=== PATIENT | male | born 1950 | race Caucasian/White ===

== ENCOUNTER 2017-05-14 15:35 | Inpatient (IN) ==
--- NOTE | 2017-05-14 15:57 | Emergency Department Note ---
Disposition Clinical Impression: CVA (cerebral vascular accident) Disposition: Admitted As Inpatient Condition: Fair Referrals: Kristen Díaz CNP [Primary Care Provider] - Forms: ED Satisfaction Letter General Adult HPI - General Stated complaint: neuro symptoms x8 hours Time Seen by Provider: 05/14/17 15:46 Nursing Notes Reviewed: Yes Vital Signs Reviewed: Yes - Related Data Allergies Allergy/AdvReac Type Severity Reaction Status Date / Time No Known Allergies Allergy Verified 05/14/17 15:56 Course Vital Signs Temperature 98.2 F 05/14/17 15:48 Pulse Rate 90 05/14/17 15:48 Respiratory Rate 16 05/14/17 15:48 Blood Pressure 131/88 05/14/17 15:48 O2 Sat by Pulse Oximetry 63 05/14/17 15:48 Temperature 98.2 F 05/14/17 15:48 Pulse Rate 90 05/14/17 15:48 Respiratory Rate 16 05/14/17 15:48 Blood Pressure 131/88 05/14/17 15:48 O2 Sat by Pulse Oximetry 63 05/14/17 15:48 Oxygen Delivery Oxygen Delivery Room Air Medical Decision Making - MDM Narrative Medical decision making narrative: I examined this patient and my medical decision-making was reviewed with the Resident Physician. I agree with the documented findings, disposition and treatment plan as described except to the extent set forth below. Patient seen and evaluated on arrival with family. And Dr. Peters, I agree with his evaluation management plan, suprascapular the patient's stay. Patient states he went to bed last night at midnight and felt fine but he had several falls during the night and this morning he woke up with slurred speech facial droop and weakness on his left side. He has had a stroke in the past and thinks he might have had a stroke since then. He takes aspirin every day. I asked him why he had not come in sooner and he replied he hoped that the symptoms would go away. He is outside the window for stroke alert. We will order labs and a CT of his head. He will need admission. Chest X-Ray 05/14/17 15:48 IMPRESSION: No acute cardiopulmonary disease. D/ / Gary Caldwell MD / Gary Caldwell MD Interpreting Provider: Gary Caldwell MD Head CT 05/14/17 15:48 IMPRESSION: No acute intracranial abnormality. 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 Slight to mild cerebral atrophy. Moderate chronic ischemic white matter changes. RECOMMENDATIONS: MRI suggested if the patient's symptoms persist. D/ / Renny Brown MD / Renny Brown MD Interpreting Provider: Renny Brown MD 1700 hrs.: We will admit the patient to the hospital. We will have neurology consult. He takes aspirin currently. No other anticoagulants this time. Patient's critical care time here excluding any separately billable procedures: 35 minutes. Impressions acute CVA. - Lab Data Result diagrams: 05/14/17 16:05 05/14/17 16:05 Lab Results 05/14/17 05/14/17 Range/Units 16:05 16:05 WBC 9.0 (4.3-11.1) K/mcL RBC 5.04 (4.19-5.50) M/mcL Hgb 15.5 (12.9-16.9) g/dL Hct 44.3 (37.5-50.1) % MCV 87.9 (83.0-100.0) fL MCH 30.8 (28.0-33.3) pg MCHC 35.0 (31.6-35.5) g/dL RDW 13.3 (11.5-14.5) % Plt Count 158 (140-400) K/mcL MPV 10.6 (9.4-12.4) fL Immature Gran % 0.7 (0-4) % Seg Neutrophils % 76.8 % Lymphocytes % 14.7 % Monocytes % 7.0 % Eosinophils % 0.4 % Basophils % 0.4 % Neutrophils # 6.9 (1.6-8.9) K/mcL Lymphocytes # 1.3 (0.6-4.6) K/mcL Monocytes # 0.6 (0.0-1.3) K/mcL Eosinophils # 0.0 (0.0-0.6) K/mcL Basophils # 0.0 (0.0-0.2) K/mcL Sodium 137 (136-145) mEq/L Potassium 3.7 (3.5-4.5) mEq/L Chloride 97 L (98-109) mEq/L Carbon Dioxide 29 (19-29) mEq/L BUN 15 (8-26) mg/dL Creatinine 0.88 (0.72-1.25) mg/dL Est GFR ( Amer) > 60 (> 60) Est GFR (Non-Af Amer) > 60 (> 60) BUN/Creatinine Ratio 17 (6-26) Glucose 118 H (70-99) mg/dL Calculated Osmolality 286 (280-300) Calcium 10.1 (8.6-10.8) mg/dL
[2017-05-14 16:16] LABS: Basophils % 0.4 %; Eosinophils % 0.4 %; Hematocrit 44.3 % (37.5-50.1); Hemoglobin 15.5 g/dL (12.9-16.9); Immature Granulocytes % 0.7 % (0-4); Lymphocytes # 1.3 K/mcL (0.6-4.6); Lymphocytes % 14.7 %; Mean Corpuscular Hemoglobin 30.8 pg (28.0-33.3); Mean Corpuscular Volume 87.9 fL (83.0-100.0); Mean Platelet Volume 10.6 fL (9.4-12.4); Monocytes # 0.6 K/mcL (0.0-1.3); Neutrophils # 6.9 K/mcL (1.6-8.9); Platelet Count 158 K/mcL (140-400); Red Blood Count 5.04 M/mcL (4.19-5.50); Red Cell Distribution Width 13.3 % (11.5-14.5); Segmented Neutrophils % 76.8 %
[2017-05-14] MEDS ORDERED: Lacri-Lube 3.5 GM TUBE OP ONE (16:17)
[2017-05-14 16:30] LABS: BUN/Creatinine Ratio 17 (6-26); Blood Urea Nitrogen 15 mg/dL (8-26); Calcium 10.1 mg/dL (8.6-10.8); Carbon Dioxide 29 mEq/L (19-29); Chloride 97 mEq/L (98-109); Glucose 118 mg/dL (70-99); Osmolality,Calculated 286 (280-300); Potassium 3.7 mEq/L (3.5-4.5); Sodium 137 mEq/L (136-145); eGFR For African Americans > 60 (> 60); eGFR For Non-African Americans > 60 (> 60)
--- NOTE | 2017-05-14 16:41 | Emergency Department Note ---
Disposition Clinical Impression: CVA (cerebral vascular accident) Qualifiers: CVA mechanism: unspecified Qualified Code(s): I63.9 - Cerebral infarction, unspecified Disposition: Admitted As Inpatient Condition: Fair Referrals: Kristen Díaz CNP [Primary Care Provider] - Forms: ED Satisfaction Letter General Adult HPI - General Chief complaint: ED Neuro Symptoms/Deficit Stated complaint: neuro symptoms x8 hours Time Seen by Provider: 05/14/17 15:46 Source: patient, family Limitations: no limitations Nursing Notes Reviewed: Yes Vital Signs Reviewed: Yes - History of Present Illness HPI Narrative: 66-year-old male who reports that at approximately midnight he got up to use the restroom and Staggering and falling. He fell multiple times. And then he went back to sleep and when he woke up he noticed his face was drooping and slurring his speech. He does have a history of a stroke multiple years ago. He does take aspirin currently. His other medical problems include hypertension and hyperlipidemia. He does not have a history of significant cardiac disease. Last known well was at midnight last night. He denies any chest pain or shortness of breath. No lower extremity edema. Pain Scale: 0 Improves with: nothing Worsens with: nothing Associated symptoms: Reports: denies other symptoms Treatments Prior to Arrival: none - Related Data Allergies Allergy/AdvReac Type Severity Reaction Status Date / Time No Known Allergies Allergy Verified 05/14/17 15:56 All systems ED: reviewed and negative except as stated. Constitutional: Denies: fever Eyes: Denies: vision change ENT ED: Denies: throat pain Cardiovascular: Denies: chest pain Respiratory: Denies: cough, dyspnea Gastrointestinal: Denies: abdominal pain Musculoskeletal: Denies: back pain Integumentary: Denies: rash Past Medical History - Past Medical History Medical history: Reports: CVA, hypertension Psychiatric history: Reports: no psych history - Social History Smoking Status: Current every day smoker Alcohol use: Reports: none Drug use: Reports: none Physical Exam - General Limitations: no limitations General appearance: alert - Head Head exam: atraumatic - Eye Eye exam: Present: normal appearance, PERRL - ENT ENT exam: normal exam, normal oropharynx - Neck Neck exam: Present: normal inspection - Chest Chest inspection: Present: normal inspection - Respiratory Respiratory exam: Present: normal lung sounds bilaterally. Absent: respiratory distress - Cardiovascular Cardiovascular exam: Present: regular rate, normal rhythm - Abdominal Exam Abdominal exam: Present: soft, Non-Tender - Extremities Exam Extremities exam: Present: normal inspection - Neurological Exam Neurological exam: Present: alert, oriented X3, other (Right-sided facial droop. Significant slurring of speech. Full range of motion, sensation, strength in the upper and lower extremities.) - Psychiatric Psychiatric exam: Present: normal affect, normal mood - Skin Skin exam: Present: warm, dry Course Course Narrative: He presents with a symptoms concerning for a CVA. We will not order a stroke alert as he is significantly passed the TPA window. He has been falling to the left and felt his left side was weaker previously, but is not currently. Labwork unremarkable. NIH of 4. CT head negative. Will admit. Vital Signs Temperature 98.2 F 05/14/17 15:48 Pulse Rate 90 05/14/17 15:48 Respiratory Rate 16 05/14/17 15:48 Blood Pressure 131/88 05/14/17 15:48 O2 Sat by Pulse Oximetry 63 05/14/17 15:48 Temperature 98.2 F 05/14/17 15:48 Pulse Rate 90 05/14/17 15:48 Respiratory Rate 16 05/14/17 15:48 Blood Pressure 131/88 05/14/17 15:48 O2 Sat by Pulse Oximetry 63 05/14/17 15:48 Oxygen Delivery Oxygen Delivery Room Air Medical Decision Making - Medical Records Medical records reviewed: Yes I reviewed the patient's medical records. - Lab Data Lab results reviewed: Yes I reviewed the patient's lab results. Result diagrams: 05/14/17 16:05 05/14/17 16:05 Lab Results 05/14/17 05/14/17 Range/Units 16:05 16:05 WBC 9.0 (4.3-11.1) K/mcL RBC 5.04 (4.19-5.50) M/mcL Hgb 15.5 (12.9-16.9) g/dL Hct 44.3 (37.5-50.1) % MCV 87.9 (83.0-100.0) fL MCH 30.8 (28.0-33.3) pg MCHC 35.0 (31.6-35.5) g/dL RDW 13.3 (11.5-14.5) % Plt Count 158 (140-400) K/mcL MPV 10.6 (9.4-12.4) fL Immature Gran % 0.7 (0-4) % Seg Neutrophils % 76.8 % Lymphocytes % 14.7 % Monocytes % 7.0 % Eosinophils % 0.4 % Basophils % 0.4 % Neutrophils # 6.9 (1.6-8.9) K/mcL Lymphocytes # 1.3 (0.6-4.6) K/mcL Monocytes # 0.6 (0.0-1.3) K/mcL Eosinophils # 0.0 (0.0-0.6) K/mcL Basophils # 0.0 (0.0-0.2) K/mcL Sodium 137 (136-145) mEq/L Potassium 3.7 (3.5-4.5) mEq/L Chloride 97 L (98-109) mEq/L Carbon Dioxide 29 (19-29) mEq/L BUN 15 (8-26) mg/dL Creatinine 0.88 (0.72-1.25) mg/dL Est GFR ( Amer) > 60 (> 60) Est GFR (Non-Af Amer) > 60 (> 60) BUN/Creatinine Ratio 17 (6-26) Glucose 118 H (70-99) mg/dL Calculated Osmolality 286 (280-300) Calcium 10.1 (8.6-10.8) mg/dL - Radiology Data Radiology results reviewed: Yes I reviewed the patient's radiology results. - EKG Data EKG #1 EKG attestation: Yes I reviewed and interpreted this EKG. EKG shows normal: sinus rhythm Rate: normal Rhythm: NSR Heart block present: 1st Degree Interpretation: other (Possible mild ST depression in V4 and V5. No other reciprocal changes. No T-wave inversions. He is not having any chest pain. There is no old EKG to refer to.) NIH Stroke Scale - Level of Consciousness LOC: Alert - LOC Questions LOC Questions: Answers both correctly - LOC Commands LOC Commands: Performs both correctly - Best Gaze Best Gaze: Normal - Visual Visual: No visual loss - Facial Palsy Facial Palsy: Partial, total, or near-total paralysis of lower face - Motor Arms Motor Arm-Left: No drift for 10 seconds Motor Arm-Right: No drift for 10 seconds - Motor Legs Motor Leg-Left: No drift for 5 seconds Motor Leg-Right: No drift for 5 seconds - Limb Ataxia Limb Ataxia: Absent of affected limb too weak to perform exam - Sensory Sensory: Normal - Best Language Best Language: No aphasia - Dysarthria Dysarthria: Severe, slurred speech unintelligible or mute - Extinction and Inattention Extinction and Inattention: Normal - NIHSS Total Score NIHSS Total Score: 4
[2017-05-14] MEDS ORDERED: Naloxone 0.4 MG/ML INJ IVP PRN (20:47)
[2017-05-14] MEDS ORDERED: *HR* Metoprolol 5 MG/5 ML VIAL IVP PRN (20:52)
[2017-05-14] MEDS: Nicotine 21 MG PATCH.TD24 TD SCH (21:06)
[2017-05-14] MEDS: *HR* Heparin 5,000 UNIT/ML VIAL SQ SCH (22:37)
--- NOTE | 2017-05-14 23:23 | Internal Med History&Physical ---
Date of Encounter: 05/14/17 Time of Encounter: 23:20 Assessment and Plan (1) CVA (cerebral vascular accident) Current visit: Yes Status: Acute History of prior CVA. Presents today with new right-sided facial droop and slurred speech. LKW was midnight today. No other focal deficits noted. Patient hemodynamically stable. Neuro consult-talk to Dr. Foster he will see the patient tomorrow and no further recommendations MRI in the morning Echocardiogram, bilateral carotid Dopplers NIH SS, neurological assessments per stroke protocol PT, OT consult, speech consult, delinquency prevention social worker consult Nothing by mouth until further recommendations from speech therapy. Resume Plavix, and simvastatin 80 mg, increase aspirin to 325 mg daily Lipid panel in the morning, CBC, BMP Qualifiers: CVA mechanism: unspecified Qualified Code(s): I63.9 - Cerebral infarction, unspecified (2) HTN (hypertension) Current visit: Yes Status: Acute History of essential hypertension. Hemodynamically stable at this time. We will hold antihypertensives at this time for permissive hypertension. Qualifiers: Hypertension type: essential hypertension Qualified Code(s): I10 - Essential (primary) hypertension (3) HLD (hyperlipidemia) Current visit: Yes Status: Acute History of hyperlipidemia not on prior statin. Start simvastatin 80 mg daily Qualifiers: Qualified Code(s): E78.5 - Hyperlipidemia, unspecified (4) DVT prophylaxis Current visit: Yes Status: Acute Heparin 5000 units subcutaneous every 8 hours Internal Medicine - H&P: HPI Chief complaint: CVA Admitted From: Home Plans for Post Hospital Care: Home History of present illness: Mr. Crowder is a 66 year old male with a PMH of the CVA, HTN and HLD. Presents to the [facility] today with right-sided facial droop and slurred speech. LKW was reported to be midnight 05/14/17. Patient reports that he woke up in the middle the night was having difficulty ambulating and fell multiple times while trying to go to the restroom. He went back to sleep and when he awoke he noticed he had a right sided facial droop and slurred speech. He is not a candidate for TPA. CT of head negative, right facial droop and slurred speech remain. Denies headache, dizziness, vision changes, chest pain, shortness of breath, palpitations, tachycardia. Admits to slight gait changes last 24 hours. Past Med Surg Social Fam HX - Past Medical History Medical history: CVA, hypertension Psychiatric history: no psych history - Social History Smoking Status: Current every day smoker Alcohol use: none Drug use: none - Additional Family History Additional family history: Reports an unremarkable family history Internal Medicine - H&P: Meds Amlodipine Besylate/Benazepril [Lotrel 5-10 mg Capsule] 1 each PO DAILY [History] Aspirin Enteric Coated [Aspirin EC] 81 mg PO DAILY 05/14/17 [History] Atenolol/Chlorthalidone [Tenoretic 50 Tablet] 1 tab PO DAILY 05/14/17 [History] Clopidogrel [Plavix] 75 mg PO DAILY 05/14/17 [History] DiphenhydraMINE [Benadryl] 25 mg PO HS 05/14/17 [History] Sulphur-3/Dha/Epa/Fish Oil [Fish Oil 1,000 mg Softgel] 2,000 mg PO DAILY 05/14/17 [History] 3 Allergy/AdvReac Type Severity Reaction Status Date / Time No Known Allergies Allergy Verified 05/14/17 15:56 All Systems PM: A 10-system review of systems was performed and is negative for pertinent findings except as documented above in the HPI. - Constitutional Constitutional: as per HPI, falls, no chills, no fatigue, no fever(s), no night sweats, no weight gain, no weight loss, no other - EENT Eyes: no blurry vision, no change in vision, no discharge, no loss of peripheral vision, no pain, no photophobia Ears: no ear discharge, no ear pain, no tinnitus Nose, mouth and throat: no dysphagia, no nasal discharge, no neck pain, no sore throat - Cardiovascular Cardiovascular ROS IM: no chest pain, no diaphoresis, no dyspnea, no dyspnea on exertion, no edema, no irregular heart rhythm, no lightheadedness, no palpitations, no syncope - Respiratory Respiratory: no cough, no dyspnea, no dyspnea on exertion, no wheezing, no excessive phlegm production - Gastrointestinal Gastrointestinal: no abdominal pain, no diarrhea, no hematemesis, no hematochezia, no melena, no nausea, no vomiting - Musculoskeletal Musculoskeletal ROS IM: no numbness, no tingling - Integumentary Integumentary IM: no rash, no unusual bruising - Neurological Neurological ROS: as per HPI, abnormal gait, focal weakness (Old LUE strength deficit left hand strength less than right), frequent falls, no dizziness, no headache(s), no lack of coordination, no loss of vision, no memory loss, no numbness, no tingling, no tremor(s), no vertigo, no weakness - Hematologic/Lymphatic Hematologic/Lymphatic: no easy bruising - Constitutional Vitals: Temp Pulse Resp BP Pulse Ox 99.1 F 100 24 127/87 93 05/14/17 19:12 05/14/17 19:12 05/14/17 19:12 05/14/17 19:12 05/14/17 19:12 General appearance: Present: A&O X 0, A&O X 3, no acute distress, answers questions appropriately - Head Head exam: Present: atraumatic, normocephalic - Eye Eye exam: Present: EOMI, PERRL, conjuntiva pink, sclera anicteric Pupils: Present: PERRL - Neck Neck exam general surgery: Present: supple, trachea midline. Absent: lymphadenopathy - Respiratory Respiratory exam: Present: CTAB. Absent: accessory muscle use, rales, respiratory distress, rhonchi, wheezes, tachypnea - Cardiovascular Cardiovascular exam: Present: RRR, +S1, +S2. Absent: diastolic murmur, gallop, irregular rhythm, rubs, systolic murmur, tachycardia - GI/Abdominal GI/Abdominal exam: Present: normal bowel sounds, soft, no peritoneal signs. Absent: distended, tenderness - Extremities Exam Extremities exam: Present: warm, radial pulses palpable and symmetrical. Absent : calf tenderness, cyanotic, pedal edema - Neurological Exam Neurological exam: Present: altered, oriented X3, strengths equal and symetr throughout (Right greater than left), facial droop (Right sided facial droop), speech deficit. Absent: abnormal gait (AMARA), CN II-XII intact, normal gait (AMARA ), no focal deficits, pronater drift - Expanded Neurological Exam Patient oriented to: Present: person, place, time Speech: Present: slurred Cranial Nerves: EOM's intact PM: Normal, nystagmus PM: Normal, tongue deviation PM: Normal Cerebellar function: finger to nose: Normal, heel to mayer: Normal, Romberg: Normal Upper motor neuron: Babinski sign: Normal, Enmanuel neglect: Normal, pronator drift : Normal, sensory extinction: Normal Neuro motor strength exam: LUE: 5, RUE: 5, LLE: 5, RLE: 5 Coma Scale Eye Opening: Spontaneous Coma Scale Motor Response: Obeys Commands Coma Scale Verbal Response: Oriented Coma Scale Total: 15 - Skin Skin exam: Present: dry, intact Internal Med - H&P Results - Labs CBC & Chem 7: 05/14/17 16:05 05/14/17 16:05 - EKG Data EKG shows normal: sinus rhythm - EKG Data Prior EKG available for review: no EKG comments: Sinus rhythm first degree block Possible mild ST depression in V4 and V5. No other reciprocal changes. No T-wave inversions. He is not having any chest pain. No old EKG on file 05/14/17 23:29 - Diagnostic Studies Chest x-ray Status: image reviewed by me Additional comments: No acute pulmonary process CT scan - head Status: image reviewed by me Additional comments: No acute intracranial abnormalities
--- NOTE | 2017-05-15 01:02 | Event Note ---
Date of Encounter: 05/15/17 Time of Encounter: 00:58 Patient and examined with nurse practitioner. Physical examination reveals right lower motor neuron facial palsy in addition patient has been complaining of increased weakness in the left side of the body causing him recurrent falls. He had a prior right CVA causing residual left-sided weakness but thinks that the left-sided weakness has increased. And therefore the differential for this presentation is either a Thurston's palsy affecting the right facial nerve versus a brainstem infarct causing crossed hemiplegia. Will get brain MRI to differentiate. Patient had right knee surgery and this may preclude MRI formation. We will see neurology input. Because of right lower motor neuron facial palsy will start patient empirically on steroids and acyclovir. Acyclovir can be discontinued if brain stem infarct is more likely. Patient also has worsening of his respiratory status. He is a lifelong smoker. I will keep patient on steroids and nebulizer treatment. Patient is do not resuscitate do not intubate.
[2017-05-15] MEDS: valACYclovir 500 MG TABLET PO SCH ×4 (02:02→23:09)
[2017-05-15] MEDS: Ipratropium/Albuterol Neb 3 ML IH SCH ×4 (02:09→22:29)
[2017-05-15] MEDS: methylPREDNISolone 125 MG/2 ML VIAL IVP SCH ×3 (05:12→17:32)
[2017-05-15] MEDS: *HR* Heparin 5,000 UNIT/ML VIAL SQ SCH ×4 (05:13→23:06)
[2017-05-15 07:24] LABS: Basophils % 0.5 %; Eosinophils # 0.1 K/mcL (0.0-0.6); Eosinophils % 1.1 %; Hematocrit 42.1 % (37.5-50.1); Hemoglobin 14.4 g/dL (12.9-16.9); Immature Granulocytes % 0.6 % (0-4); Lymphocytes # 1.1 K/mcL (0.6-4.6); Lymphocytes % 16.5 %; Mean Corpuscular HGB Conc 34.2 g/dL (31.6-35.5); Mean Corpuscular Hemoglobin 30.3 pg (28.0-33.3); Mean Corpuscular Volume 88.6 fL (83.0-100.0); Mean Platelet Volume 11.2 fL (9.4-12.4); Monocytes # 0.4 K/mcL (0.0-1.3); Monocytes % 6.9 %; Neutrophils # 4.7 K/mcL (1.6-8.9); Platelet Count 150 K/mcL (140-400); Red Blood Count 4.75 M/mcL (4.19-5.50); Red Cell Distribution Width 13.4 % (11.5-14.5); Segmented Neutrophils % 74.4 %
[2017-05-15 07:40] LABS: BUN/Creatinine Ratio 15 (6-26); Blood Urea Nitrogen 12 mg/dL (8-26); Calcium 9.4 mg/dL (8.6-10.8); Carbon Dioxide 28 mEq/L (19-29); Chloride 99 mEq/L (98-109); Chol/HDL Ratio 7.1 (0-4.9); Cholesterol 212 mg/dL (< 200); Glucose 100 mg/dL (70-99); HDL Cholesterol 30 mg/dL (40-59); LDL Cholesterol,Calculated 151 mg/dL (0-99); Osmolality,Calculated 282 (280-300); Potassium 3.4 mEq/L (3.5-4.5); Sodium 136 mEq/L (136-145); Triglycerides 153 mg/dL (< 150); eGFR For African Americans > 60 (> 60); eGFR For Non-African Americans > 60 (> 60)
[2017-05-15] MEDS ORDERED: (Omega-3/Dha/Epa/Fish Oil [Fish Oil 1,000 Mg Softgel] PO SCH (09:00)
[2017-05-15] MEDS ORDERED: [UNRECOGNIZED DRUG - OTHER] PO SCH (09:00)
[2017-05-15] MEDS ORDERED: Aspirin Enteric Coated 325 MG Tablet PO SCH (09:00)
[2017-05-15] MEDS ORDERED: NON-FORMULARY MEDICATION 1 EACH EACH (Amlodipine Besylate/Benazepril [Lotrel 5-10 Mg Capsu PO SCH (09:00)
[2017-05-15] MEDS ORDERED: CHLORTHALIDONE PO SCH (09:00)
[2017-05-15] MEDS ORDERED: ATENOLOL PO SCH (09:00)
[2017-05-15] MEDS ORDERED: Potassium Chloride 40 MEQ in D5% in 0.9% NACL 1,000 ML IVC SCH (12:30)
--- NOTE | 2017-05-15 12:40 | Neurology - Consult Note ---
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 Agree with work up with echocardiography and carotid artery duplex study. Agree with Aspirin 325mg daily and plavix 75mg daily and continue statin therapy. Patient will benefit from PT/speech therapy. DVT prophylaxis. Monitor swallowing testing. Symptoms with pontine inarct tend to improve. Patient may benefit from outpatient sleep study to assess untreated OLIVER which is a risk factor for CVA. Qualifiers: CVA mechanism: unspecified Qualified Code(s): I63.9 - Cerebral infarction, unspecified History of Present Illness Chief complaint: facial droop, slurred speech and double vision HPI: Mr. Crowder is a 66 year old male with PMH significant for HTN, CVA 13 years ago, osteoarthritis, mixed hyperlipidemia who developed acute onset of slurred speech, double vision and facial droop. Left side weak and unable to walk. Symptoms occurred yesterday morning and he woke up with symptoms. saw double vision, right face droops and also more weakness to the left side. patient had CVA 13 years ago with residual left sided weakness but has been able to walk without assistance. 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 Patient has been taking aspirin 81mg and plavix 75mg daily he has hyperlipidemia but was not on statin therapy. Past Med Surg Social Fam HX - Past Medical History Medical history: CVA, hypertension Psychiatric history: no psych history - Social History Smoking Status: Current every day smoker Alcohol use: none Drug use: none Medications and Allergies Amlodipine Besylate/Benazepril [Lotrel 5-10 mg Capsule] 1 each PO DAILY [History] Aspirin Enteric Coated [Aspirin EC] 81 mg PO DAILY 05/14/17 [History] Atenolol/Chlorthalidone [Tenoretic 50 Tablet] 1 tab PO DAILY 05/14/17 [History] Clopidogrel [Plavix] 75 mg PO DAILY 05/14/17 [History] DiphenhydraMINE [Benadryl] 25 mg PO HS 05/14/17 [History] [place]-3/Dha/Epa/Fish Oil [Fish Oil 1,000 mg Softgel] 2,000 mg PO DAILY 05/14/17 [History] 3 Allergy/AdvReac Type Severity Reaction Status Date / Time No Known Allergies Allergy Verified 05/14/17 15:56 All Systems: A 10-system review of systems was performed and is negative for pertinent findings except as documented above in the HPI. Physical Examination - Vital Signs Vital Signs: Initial Vital Signs Temp Pulse Resp BP Pulse Ox 98.2 F 90 16 131/88 63 05/14/17 15:48 05/14/17 15:48 05/14/17 15:48 05/14/17 15:48 05/14/17 15:48 - Constitutional General appearance: chronically ill - Neurologic Sensorimotor examination: intact Motor examination - right side: 5/5: deltoids, biceps, triceps, wrist flexion, wrist extension, foot tender, hip flexors, tibialis Anterior, quadriceps, toe extension (EHL), plantarflexion Motor examination - left side: 5/5: deltoids, biceps, triceps, wrist flexion, wrist extension, hip flexors, foot tender, quadriceps, tibialis Anterior, toe extension (EHL), plantarflexion Reflexes: Biceps: 3+ (left more than right), Triceps: 3+ (left more than right) , Brachioradialis: 3+ (left more than right), Patella: 3+ (left more than right) , Achilles: 3+ (left more than right) Mental Status Examination: awake, alert, oriented to person, oriented to place, oriented to time, follows commands appropriately, answers questions appropriately, no agnosia, no aphasia, no aproxia Cranial nerve examination: PERRL, EOMI, visual crisostomo intact, corneal reflexes brisk symmetrically, sensory to face intact, mastication intact, no facial asymmetry is present (right facial paralysis noted, with also right ptosis), no dysarthria (severe dysarthria noted), hearing is intact symmetrically, soft palate elevates bilaterally upon phonation, gag reflex intact, flexes SCM and trapezius muscles symmetrically with full power, tongue protrudes midline Results - Laboratory Findings CBC and BMP: 05/15/17 06:29 05/15/17 06:29 Abnormal lab findings: Abnormal lab results Potassium 3.4 mEq/L (3.5-4.5) L 05/15/17 06:29 Glucose 100 mg/dL (70-99) H 05/15/17 06:29 Triglycerides 153 mg/dL (< 150) H 05/15/17 06:29 Cholesterol 212 mg/dL (< 200) H 05/15/17 06:29 LDL Cholesterol, Calc 151 mg/dL (0-99) H 05/15/17 06:29 VLDL Cholesterol, Calc 31 mg/dL (< 31) H 05/15/17 06:29 HDL Cholesterol 30 mg/dL (40-59) L 05/15/17 06:29 Cholesterol/HDL Ratio 7.1 (0-4.9) H 05/15/17 06:29 Consult Discharge Plan - Plan Additional Instructions: pcp requested Referrals: Kristen Díaz, MERRY [Primary Care Provider] -
[2017-05-15] MEDS: Nicotine 21 MG PATCH.TD24 TD SCH (15:10)
--- NOTE | 2017-05-15 16:05 | Electrocardiograph Report ---
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
--- NOTE | 2017-05-15 16:27 | Internal Med Progress Note ---
Date of Encounter: 05/15/17 Time of Encounter: 16:00 - Assessment and plan (1) CVA (cerebral vascular accident) Current Visit: Yes Status: Acute Assessment and plan: Neurology is following, he is continued on aspirin and Plavix with statin. Swallow study and speech therapy. Carotids duplex pending. PT and OT has recommended SNF Qualifiers: CVA mechanism: unspecified Qualified Code(s): I63.9 - Cerebral infarction, unspecified - Subjective Interval history: No acute events, sits strength is better. Since himself from the mouth as needed - Constitutional Vitals: Temp Pulse Resp BP Pulse Ox 98.1 F 90 18 130/80 92 05/15/17 15:27 05/15/17 15:27 05/15/17 15:27 05/15/17 15:27 05/15/17 15:27 General appearance: Present: A&O X 3, no acute distress, answers questions appropriately Exam: - Head Head exam: Present: atraumatic, normocephalic - Eye Eye exam: Present: EOMI, PERRL, conjuntiva pink, sclera anicteric Pupils: Present: PERRL - Neck Neck exam general surgery: Present: supple, trachea midline. Absent: lymphadenopathy - Respiratory Respiratory exam: Present: CTAB. Absent: accessory muscle use, rales, respiratory distress, rhonchi, wheezes, tachypnea - Cardiovascular Cardiovascular exam: Present: RRR, +S1, +S2. Absent: diastolic murmur, gallop, irregular rhythm, rubs, systolic murmur, tachycardia - GI/Abdominal GI/Abdominal exam: Present: normal bowel sounds, soft, no peritoneal signs. Absent: distended, tenderness - Extremities Exam Extremities exam: Present: warm, radial pulses palpable and symmetrical. Absent : calf tenderness, cyanotic, pedal edema - Neurological Exam Neurological exam: Present: altered, oriented X3, strengths equal and symetr throughout (Right greater than left), facial droop (Right sided facial droop, but improved since yesterday's exam.), speech deficit but improved. Absent: abnormal gait (AMARA), CN II-XII intact, normal gait (AMARA), no focal deficits, pronater drift - Expanded Neurological Exam Patient oriented to: Present: person, place, time Speech: Present: slurred Cranial Nerves: EOM's intact PM: Normal, nystagmus PM: Normal, tongue deviation PM: Normal Cerebellar function: finger to nose: Normal, heel to mayer: Normal, Romberg: Normal Upper motor neuron: Babinski sign: Normal, Enmanuel neglect: Normal, pronator drift : Normal, sensory extinction: Normal Neuro motor strength exam: LUE: 5, RUE: 5, LLE: 5, RLE: 5 Coma Scale Eye Opening: Spontaneous Coma Scale Motor Response: Obeys Commands Coma Scale Verbal Response: Oriented Coma Scale Total: 15 Internal Medicine: Result - Labs CBC & Chem 7: 05/16/17 04:05 05/16/17 04:05 Labs: Short CBC 05/15/17 Range/Units 06:29 WBC 6.4 (4.3-11.1) K/mcL Hgb 14.4 (12.9-16.9) g/dL Hct 42.1 (37.5-50.1) % Plt Count 150 (140-400) K/mcL Neutrophils # 4.7 (1.6-8.9) K/mcL BMP 05/15/17 06:29 Sodium 136 Potassium 3.4 L Chloride 99 Carbon Dioxide 28 BUN 12 Creatinine 0.81 Glucose 100 H Calcium 9.4 - Impressions Impressions Brain MRI 05/15/17 20:45 IMPRESSION: Small, acute right pontomedullary junction infarct. Moderate, remote right frontal lobe infarct and mild background microvascular ischemic disease. The findings were sent to the Radiology Results Communication [facility] at 10:50 am on 05/15/2017to be communicated to a licensed caregiver. D/ / 05/15/2017 11:34:42 Alban Bailey MD / [place] Interpreting Provider: Alban Bailey MD Echocardiogram 05/15/17 21:12 Impressions: LVEF 65%. Indeterminate diastolic function. Normal right ventricular structure and function. No significant valvular dysfunction. No evidence of PFO with agitated saline contrast. Left Ventricular Wall Motion: Rest Echo Findings The mid inferior lateral and basal inferior lateral wilson were not visualized. All other wall segments showed normal motion. Findings: Study Quality * Technically sub-optimal due to body habitus. ECG Findings * Sinus tachycardia. Left Ventricle * LVEF 65%. * Indeterminate diastolic function. * Normal LV size and wall thickness. Right Ventricle * Normal right ventricular structure and function. Left Atrium * Normal left atrial size. Right Atrium * Normal right atrial size. Aortic Valve * No aortic regurgitation. * Aortic valve not well visualized. * No aortic stenosis. Mitral Valve * Normal mitral valve structure. * No mitral regurgitation. * No mitral stenosis. Tricuspid Valve * Tricuspid valve not well visualized. * No tricuspid regurgitation. * Estimated RA pressure is 3 mmHg. Pulmonic Valve * Pulmonic valve is not well visualized. * No pulmonic stenosis. * No pulmonic regurgitation. Pulmonary Artery * Pulmonary artery not well visualized. Aorta * Not well visualized. Pericardium * There is no pericardial effusion present. Interatrial Septum * No evidence of PFO by color Doppler. * No evidence of PFO with agitated saline contrast. IVC * Normal IVC dimensions and inspiratory collapse. Consult Discharge Plan - Plan Additional Instructions: pcp requested Referrals: Kristen Díaz CNP [Primary Care Provider] -
[2017-05-16] MEDS: methylPREDNISolone 125 MG/2 ML VIAL IVP SCH ×3 (01:41→13:39)
[2017-05-16] MEDS: Ipratropium/Albuterol Neb 3 ML IH SCH ×4 (03:54→21:11)
[2017-05-16 05:16] LABS: Basophils % 0.1 %; Hematocrit 42.8 % (37.5-50.1); Hemoglobin 14.8 g/dL (12.9-16.9); Immature Granulocytes % 0.5 % (0-4); Lymphocytes # 0.6 K/mcL (0.6-4.6); Lymphocytes % 7.9 %; Mean Corpuscular HGB Conc 34.6 g/dL (31.6-35.5); Mean Corpuscular Hemoglobin 30.5 pg (28.0-33.3); Mean Corpuscular Volume 88.2 fL (83.0-100.0); Mean Platelet Volume 11.1 fL (9.4-12.4); Monocytes # 0.3 K/mcL (0.0-1.3); Monocytes % 3.8 %; Neutrophils # 7.1 K/mcL (1.6-8.9); Platelet Count 156 K/mcL (140-400); Red Blood Count 4.85 M/mcL (4.19-5.50); Red Cell Distribution Width 13.1 % (11.5-14.5); Segmented Neutrophils % 87.7 %
[2017-05-16 05:33] LABS: BUN/Creatinine Ratio 27 (6-26); Blood Urea Nitrogen 21 mg/dL (8-26); Calcium 9.1 mg/dL (8.6-10.8); Carbon Dioxide 26 mEq/L (19-29); Chloride 104 mEq/L (98-109); Glucose 122 mg/dL (70-99); Osmolality,Calculated 292 (280-300); Potassium 3.4 mEq/L (3.5-4.5); Sodium 139 mEq/L (136-145); eGFR For African Americans > 60 (> 60); eGFR For Non-African Americans > 60 (> 60)
[2017-05-16] MEDS: *HR* Heparin 5,000 UNIT/ML VIAL SQ SCH ×3 (06:38→20:23)
[2017-05-16] MEDS: Nicotine 21 MG PATCH.TD24 TD SCH (10:02)
--- NOTE | 2017-05-16 15:34 | Internal Med Progress Note ---
Date of Encounter: 05/16/17 Time of Encounter: 15:32 - Assessment and plan (1) CVA (cerebral vascular accident) Current Visit: Yes Status: Acute Assessment and plan: Neurology is following, he is continued on aspirin and Plavix with statin. Modified barium swallow study was done 05/16: Showed delayed oral phase, no aspiration. Carotids duplex results pending. PT and OT has recommended SNF, however patient declines. Discussed with case management/social work if he can do home PT OT. If carotid duplex negative, and PT OT can be arranged for home since he declines placement, would anticipate discharge maybe tomorrow. Qualifiers: CVA mechanism: unspecified Qualified Code(s): I63.9 - Cerebral infarction, unspecified - Subjective Interval history: No acute events, he is sitting up and changing himself as of right now. He has no complaints. He tells me he is not willing to go to a nursing home facility. He only intends on going home. - Constitutional Vitals: Temp Pulse Resp BP Pulse Ox 98.3 F 110 16 115/53 97 05/16/17 07:37 05/16/17 07:37 05/16/17 11:34 05/16/17 07:37 05/16/17 11:34 General appearance: Present: A&O X 3, no acute distress, answers questions appropriately Exam: - Head Head exam: Present: atraumatic, normocephalic - Eye Eye exam: Present: EOMI, PERRL, conjuntiva pink, sclera anicteric Pupils: Present: PERRL - Respiratory Respiratory exam: Present: CTAB. Absent: accessory muscle use, rales, respiratory distress, rhonchi, wheezes, tachypnea - Cardiovascular Cardiovascular exam: Present: RRR, +S1, +S2. Absent: diastolic murmur, gallop, irregular rhythm, rubs, systolic murmur, tachycardia - Extremities Exam Extremities exam: Present: warm, radial pulses palpable and symmetrical. Absent : calf tenderness, cyanotic, pedal edema - Neurological Exam Neurological exam: Present: altered, oriented X3, strengths equal and symetr throughout (Right greater than left), facial droop (Right sided facial droop, but improved since yesterday's exam.), speech deficit but improved. Absent: abnormal gait (AMARA), CN II-XII intact, normal gait (AMARA), no focal deficits, pronater drift - Expanded Neurological Exam Patient oriented to: Present: person, place, time Speech: Present: slurred Cranial Nerves: EOM's intact PM: Normal, nystagmus PM: Normal, tongue deviation PM: Normal Cerebellar function: finger to nose: Normal, heel to mayer: Normal, Romberg: Normal Upper motor neuron: Babinski sign: Normal, Enmanuel neglect: Normal, pronator drift : Normal, sensory extinction: Normal Neuro motor strength exam: LUE: 5, RUE: 5, LLE: 5, RLE: 5 Coma Scale Eye Opening: Spontaneous Coma Scale Motor Response: Obeys Commands Coma Scale Verbal Response: Oriented Coma Scale Total: 15 Internal Medicine: Result - Labs CBC & Chem 7: 05/16/17 04:05 05/16/17 04:05 Labs: Short CBC 05/16/17 Range/Units 04:05 WBC 8.1 (4.3-11.1) K/mcL Hgb 14.8 (12.9-16.9) g/dL Hct 42.8 (37.5-50.1) % Plt Count 156 (140-400) K/mcL Neutrophils # 7.1 (1.6-8.9) K/mcL BMP 05/16/17 04:05 Sodium 139 Potassium 3.4 L Chloride 104 Carbon Dioxide 26 BUN 21 Creatinine 0.78 Glucose 122 H Calcium 9.1 - Impressions Impressions Videofluoroscopic Swallow 05/16/17 08:10 IMPRESSION: Penetration seen during examination without aspiration. Please see separate speech pathology report for full discussion of findings and recommendations. D/ / Ge Montesinos MD / Ge Montesinos MD Interpreting Provider: Ge Montesinos MD Consult Discharge Plan - Plan Additional Instructions: pcp requested Referrals: Kristen Díaz, MERRY [Primary Care Provider] -
[2017-05-17 03:50] LABS: Basophils % 0.1 %; Hemoglobin 14.6 g/dL (12.9-16.9); Immature Granulocytes % 0.6 % (0-4); Lymphocytes # 0.9 K/mcL (0.6-4.6); Lymphocytes % 5.6 %; Mean Corpuscular HGB Conc 34.8 g/dL (31.6-35.5); Mean Corpuscular Hemoglobin 30.3 pg (28.0-33.3); Mean Corpuscular Volume 87.1 fL (83.0-100.0); Mean Platelet Volume 10.9 fL (9.4-12.4); Monocytes % 6.7 %; Neutrophils # 13.6 K/mcL (1.6-8.9); Platelet Count 159 K/mcL (140-400); Red Blood Count 4.82 M/mcL (4.19-5.50); Red Cell Distribution Width 13.6 % (11.5-14.5)
[2017-05-17 03:52] LABS: Monocytes # 1.1 K/mcL (0.0-1.3)
[2017-05-17 04:04] LABS: BUN/Creatinine Ratio 34 (6-26); Blood Urea Nitrogen 29 mg/dL (8-26); Calcium 9.2 mg/dL (8.6-10.8); Carbon Dioxide 25 mEq/L (19-29); Chloride 104 mEq/L (98-109); Glucose 118 mg/dL (70-99); Osmolality,Calculated 297 (280-300); Potassium 3.3 mEq/L (3.5-4.5); Sodium 140 mEq/L (136-145); eGFR For African Americans > 60 (> 60); eGFR For Non-African Americans > 60 (> 60)
[2017-05-17] MEDS: Ipratropium/Albuterol Neb 3 ML IH SCH ×4 (04:33→22:18)
[2017-05-17] MEDS: *HR* Heparin 5,000 UNIT/ML VIAL SQ SCH ×3 (05:15→22:51)
--- NOTE | 2017-05-17 10:03 | Discharge Summary ---
Date of Encounter: 05/17/17 Time of Encounter: 09:58 - Discharge Diagnosis (1) CVA (cerebral vascular accident) Priority: Primary Status: Acute Qualifiers: CVA mechanism: unspecified Qualified Code(s): I63.9 - Cerebral infarction, unspecified - Discharge Medications Prescriptions: Atorvastatin [Lipitor] 40 mg PO HS #30 tablet Nicotine Patch [Nicoderm] 21 mg TD DAILY #30 patch.td24 Home Medications: Amlodipine Besylate/Benazepril [Lotrel 5-10 mg Capsule] 1 each PO DAILY [History] Atenolol/Chlorthalidone [Tenoretic 50 Tablet] 1 tab PO DAILY 05/14/17 [History] Clopidogrel [Plavix] 75 mg PO DAILY 05/14/17 [History] DiphenhydraMINE [Benadryl] 25 mg PO HS 05/14/17 [History] Aspirin 325 mg PO DAILY #30 tablet 05/17/17 [Rx] Atorvastatin [Lipitor] 40 mg PO HS #30 tablet 05/17/17 [Rx] Nicotine Patch [Nicoderm] 21 mg TD DAILY #30 patch.td24 05/17/17 [Rx] Allergies/Adverse Reactions: 3 Allergy/AdvReac Type Severity Reaction Status Date / Time No Known Allergies Allergy Verified 05/14/17 15:56 Procedures/tests Complete & Pending: Procedures Performed prior 72 hours Category Date Time Status MR head/brain wo con [MR] Routine MRI 05/15/17 20:45 Completed EV carotid duplex imaging BI Routine Y 05/15/17 20:52 Completed EV echo with saline Routine Y 05/15/17 21:12 Completed Date of admission: 05/14/17 20:48 Primary care physician: Kristen Díaz CNP Consults: 05/15/17 09:19 consult to tomographic tech [Consult to Nutrition] [CONS] Routine Comment: Consulting Provider: NUTRITION Reason for Dietary Consult: Other Other:: Alt. means of nut. Discharging clinician: Diya Aguilar - Patient Status Disposition: Home Health Service Condition: Fair Functional capacity at discharge: uses cane/walker Overall status at discharge: patient is progressing back to baseline - Discharge Instructions Follow Up With: Kristen Díaz CNP [Primary Care Provider] - Additional Instructions: pcp requested - Diet and Activity Activity: as per physical therapy Diet: low fat, low cholesterol, low salt diet Hospital course: Mr. Crowder is a 66 year old male with a PMH of the CVA, HTN and HLD. Presented to the [facility] with right-sided facial droop and slurred speech. LKW was reported to be midnight 05/14/17. Patient reports that he woke up in the middle the night was having difficulty ambulating and fell multiple times while trying to go to the restroom. He went back to sleep and when he awoke he noticed he had a right sided facial droop and slurred speech. CT of head negative denied headache, dizziness, vision changes, chest pain, shortness of breath, palpitations, tachycardia. He was not a candidate for TPA. Neurology was consulted. An MRI was done showing a right pontomedullary infarct with small vessel disease. His aspirin was increased to 325 mg daily with Plavix 75 mg daily. Echcardiogram showed no evidence of PFO, and no emboli was visualized.Carotid ultrasound was completed, preliminary results were unremarkable. Modified barium swallow showed patient does not aspirate. His diet per Speech Therapy was nectar thick liquids upon discharge. PT/OT evaluated patient and recommended SNF but patient refused. He was discharged home with PT, Nursing, and speech therapy. Patient does smoke and we had discussion on cessation. We also discussed how smoking is a big contributor to risk of strokes and IA. Patient does believe that when he goes home he will stop smoking. Offered support to patient and if needs resources for cessation, that we can provide for him. Also suggested per neurology that he undergoe sleep study to rule out OLIVER as this could put patient at risk for stroke. - Time Spent with Patient Total time spent providing and/or coordinating discharge services: - Constitutional Vitals: Temp Pulse Resp BP Pulse Ox 98.1 F 92 14 113/71 94 05/17/17 06:44 05/17/17 06:44 05/17/17 06:44 05/17/17 06:44 05/17/17 06:44 General appearance: Present: A&O X 3, no acute distress, answers questions appropriately Exam: - Neurologic Sensorimotor examination: intact Motor examination - right side: 5/5: deltoids, biceps, triceps, wrist flexion, wrist extension, vamp marker, hip flexors, tibialis Anterior, quadriceps, toe extension (EHL), plantarflexion Motor examination - left side: 11/24: deltoids, biceps, triceps, wrist flexion, wrist extension, hip flexors, vamp marker, quadriceps, tibialis Anterior, toe extension (EHL), plantarflexion Reflexes: Biceps: 3+ (left more than right), Triceps: 3+ (left more than right) , Brachioradialis: 3+ (left more than right), Patella: 3+ (left more than right) , Achilles: 3+ (left more than right) Mental Status Examination: awake, alert, oriented to person, oriented to place, oriented to time, follows commands appropriately, answers questions appropriately, no agnosia, no aphasia, no aproxia Cranial nerve examination: PERRL, EOMI, visual crisostomo intact, corneal reflexes brisk symmetrically, sensory to face intact, mastication intact, no facial asymmetry is present (right facial paralysis noted, with also right ptosis), no dysarthria (severe dysarthria noted), hearing is intact symmetrically, soft palate elevates bilaterally upon phonation, gag reflex intact, flexes SCM and trapezius muscles symmetrically with full power, tongue protrudes midline
--- NOTE | 2017-05-17 10:33 | Physician Discharge Referral ---
Home Health/Hosp Referral Info Transfer to: Home Health Provider in Charge Post Discharge: PCP - Diagnosis (1) CVA (cerebral vascular accident) Priority: Primary Status: Acute - Respiratory Orders Smoking Cessation: Smoking cessation has been advised. For more information, call the [place] Tobacco Quit Line at 9-256-LVBY-NOW. - Diet/Nutrition Diet/Nutrition Orders: Pureed - Activity Activity Orders: Walker Activity: List: with physical therapy - Services Needed Following services are medically necessary services: Nursing, Physical Therapy, Speech Therapy - Transfer Medications Prescriptions: Aspirin 325 mg PO DAILY #30 tablet Atorvastatin [Lipitor] 40 mg PO HS #30 tablet Nicotine Patch [Nicoderm] 21 mg TD DAILY #30 patch.td24 Home Medications: Amlodipine Besylate/Benazepril [Lotrel 5-10 mg Capsule] 1 each PO DAILY [History] Atenolol/Chlorthalidone [Tenoretic 50 Tablet] 1 tab PO DAILY 05/14/17 [History] Clopidogrel [Plavix] 75 mg PO DAILY 05/14/17 [History] DiphenhydraMINE [Benadryl] 25 mg PO HS 05/14/17 [History] Aspirin 325 mg PO DAILY #30 tablet 05/17/17 [Rx] Atorvastatin [Lipitor] 40 mg PO HS #30 tablet 05/17/17 [Rx] Nicotine Patch [Nicoderm] 21 mg TD DAILY #30 patch.td24 05/17/17 [Rx] Allergies/Adverse Reactions: 3 Allergy/AdvReac Type Severity Reaction Status Date / Time No Known Allergies Allergy Verified 05/14/17 15:56 Certification: Further, I certify that my clinical findings support that this patient is homebound (i.e. absences from home require considerable and taxing effort and are for medical reasons or denominational services or infrequently or short duration when for other reasons) because: Homebound Reason: Patient requires assistance of a person or device to safely leave home, Leaving home requires considerable and taxing effort due to condition Attestation: My signature below is to certify that this patient is under my care and that I, or nurse practitioner, or a physician's administrative assistant office manager working with me, has a face-to -face encounter with this patient.
[2017-05-17] MEDS: Nicotine 21 MG PATCH.TD24 TD SCH (10:34)
[2017-05-17] MEDS: Aspirin 81 MG TAB.CHEW PO SCH (15:45)
[2017-05-17] MEDS ORDERED: D5% in Water (Mini-Bag+) 100 ML IVPB ONE (23:25)
[2017-05-18] MEDS: Ipratropium/Albuterol Neb 3 ML IH SCH ×3 (04:11→15:25)
[2017-05-18] MEDS: *HR* Heparin 5,000 UNIT/ML VIAL SQ SCH ×2 (06:58→14:51)
[2017-05-18] MEDS: Aspirin 81 MG TAB.CHEW PO SCH (09:26)
[2017-05-18] MEDS: Nicotine 21 MG PATCH.TD24 TD SCH (09:26)
[2017-05-18 11:36] VITALS: BP 109/82
--- NOTE | 2017-05-18 16:21 | Physician Discharge Referral ---
ExtendedCare Referral Info Transfer To: [facility] Provider in Charge after Transfer: PCP Institutional Level of Care: Skilled - Diagnosis (1) CVA (cerebral vascular accident) Priority: Primary Status: Acute (2) HTN (hypertension) Priority: Secondary Status: Acute (3) HLD (hyperlipidemia) Priority: Secondary Status: Acute (4) DVT prophylaxis Priority: Secondary Status: Acute Aware of Diagnosis: Patient, Family Aware of Prognosis: Patient, Family - Transfer Medications Prescriptions: Aspirin 325 mg PO DAILY #30 tablet Atorvastatin [Lipitor] 40 mg PO HS #30 tablet Nicotine Patch [Nicoderm] 21 mg TD DAILY #30 patch.td24 Home Medications: Amlodipine Besylate/Benazepril [Lotrel 5-10 mg Capsule] 1 each PO DAILY [History] Atenolol/Chlorthalidone [Tenoretic 50 Tablet] 1 tab PO DAILY 05/14/17 [History] Clopidogrel [Plavix] 75 mg PO DAILY 05/14/17 [History] DiphenhydraMINE [Benadryl] 25 mg PO HS 05/14/17 [History] Aspirin 325 mg PO DAILY #30 tablet 05/17/17 [Rx] Atorvastatin [Lipitor] 40 mg PO HS #30 tablet 05/17/17 [Rx] Nicotine Patch [Nicoderm] 21 mg TD DAILY #30 patch.td24 05/17/17 [Rx] Allergies/Adverse Reactions: 3 Allergy/AdvReac Type Severity Reaction Status Date / Time No Known Allergies Allergy Verified 05/14/17 15:56 - Respiratory Orders Smoking Cessation: Smoking cessation has been advised. For more information, call the [place] Tobacco Quit Line at 3-651-GQIS-NOW. - Ancillary Orders May use pressure relief devices daily prn, May consult with Dentist, Cost Estimating Clerk, Salesperson Corsets PRN - Mobility Orders Ambulate - Rehabiliation Orders Rehab Potential: Fair Rehab Orders: Evaluation for Physical Therapy, Evaluation for Occupational Therapy, Evaluation for Speech Therapy - Treatments Skin tear care topically daily PRN per policy, Fleet enema rectally every other day PRN cleansing purposes - Diet Orders Pureed, Cardiac House Supplement per Dietary: Ensure twice a day,any flavor okay. CERTIFICATION: I certify that the transfer of the above named patient to an Extended Care Facility is necessary for the continuing treatment of the diagnosis listed. The above information is true and accurate reflection of patient's current condition. Confidential - Redisclosure prohibited without a patient's written consent.
== END 2017-05-18 16:45 | DRG 66 ==
LOC: 2NENU 15:35 → EMEROO 15:35 → 2NENU 18:30 → SUATTDRO 20:48
PROVIDERS: ADMIT Internal Medicine; ATTEND Student in an Organized Health Care Education/Training Program

== ENCOUNTER 2018-10-05 02:58 | Inpatient (IN) ==
[2018-10-05] MEDS ORDERED: Isovue-370 500 ML BOTTLE IVP ONE ×2 (03:35→03:37)
--- NOTE | 2018-10-05 04:04 | Internal Med History&Physical ---
Date of Encounter: 10/05/18 Time of Encounter: 04:02 Internal Medicine - H&P: HPI Chief complaint: leg heaviness Plans for Post Hospital Care: Home History of present illness: Emil Crowder is a 68 year old man with a history of hypertension, CVA and is an active smoker was seen by his primary care physician yesterday morning with complaints of shortness of breath and wet sounding lungs referred to the ER but did not present himself to 9 PM. He complained of heaviness in his legs and swelling. He reported feeling generally unwell and felt his home dose of diuretics were not working. Over at [facility] he was given 2L of fluids because a chest x-ray reported concerns for pneumonia. He was also given ceftriaxone and azithromycin. His chest x-ray on my review shows more vascular congestion rather than actual focal consolidations. No leukocytosis on lab work. BNP elevated at greater than 600. Initial troponin 0.03 and 2 hour repeat 0.04. Urine studies are unremarkable. He was minimally tachycardic but not tachypneic or hypoxic. He was given 2.5 mg of metoprolol IV push. He was transferred here for further management. On my assessment he reports heaviness in his legs that have been present for about a month and gradually feeling unwell. Physical examination is remarkable with features as identified below that were not relayed by the transferring physician: Vitals: Reviewed General: Obese, disheveled, unkempt male lying in bed in NAD. Speech slurred but comprehensible. Skin: Dry, dirty. HEENT: Dry mucous membranes. No conjunctivae pallor. Neck: No lymphadenopathy. No JVD. Chest: Normal thoracic expansion. Diminished breath sounds with scattered wheezes in both lung crisostomo. Heart: Normal S1 & S2; rhythmic. No rubs or murmurs. Abdomen: Non-distended, soft and non-tender to palpation. No peritoneal reaction. Extremities: Left arm livedo reticularis noted, pale, cyanotic, cold left forearm with diminished radial pulse. Bilateral legs edematous and firm with pitting edema. Left foot is extremely cold, purplish cyanotic and with non- palpable dorsalis pedis pulse but is dopplerable. Neurological: Awake, alert and oriented to person, place and time. Strength in tact. Psych: Affect appropriate. Past Med Surg Social Fam HX - Past Medical History Medical history: CVA, hyperlipidemia Additional medical history: CVA on 05/14/2017 Psychiatric history: no psych history - Past Surgical History Additional surgical history: total right knee replacement - Social History Smoking Status: Current every day smoker Packs per day: 2 Smokeless Tobacco Status: No Alcohol use: none Drug use: none Internal Medicine - H&P: Meds Bumetanide [Bumex] 1 mg PO NOW 10/04/18 [History] Clopidogrel [Plavix] 75 mg PO DAILY 10/04/18 [History] Guaifen/Phenyleph/Acetaminophn [Mucinex Sinus-Max Severe Liq] 180 ml PO QAM 10/04/18 [History] Naproxen Sodium [Aleve] 220 mg PO QWEEK PRN 10/04/18 [History] Allergy/AdvReac Type Severity Reaction Status Date / Time No Known Allergies Allergy Verified 05/14/17 15:56 All Systems PM: A 10-system review of systems was performed and is negative for pertinent findings except as documented above in the HPI. Family history reviewed and found non-contributory. - Constitutional Vitals: Temp Pulse Resp BP Pulse Ox 97.5 F L 101 14 108/74 93 10/05/18 03:50 10/05/18 03:50 10/05/18 03:50 10/05/18 03:50 10/05/18 03:50 Exam: . - Assessment and Plan (1) PAD (peripheral artery disease) Current Visit: Yes Status: Acute Assessment and plan: Notable on physical exam. It seems to be a chronic entity that is acutely worsening. Unfortunately this was only caught upon transfer here with a full physical examination. Will order a STAT CT angio of his left arm as well as a CT angio w/ runoff. Will consult vascular surgery with the findings. (2) CHF (congestive heart failure) Current Visit: Yes Status: Acute Assessment and plan: Suspect that the patient's progressive shortness of breath may be attributable to heart failure. He has no signs of infection or respiratory findings really concerning for pneumonia. Will not continue ceftriaxone/azithromycin given at [facility]. Will check a TTE for evaluation. Qualifiers: Heart failure type: unspecified Heart failure chronicity: acute on chronic Qualified Code(s): I50.9 - Heart failure, unspecified (3) COPD (chronic obstructive pulmonary disease) Current Visit: Yes Status: Chronic Assessment and plan: The patient has notable wheezing on auscultation and will benefit from nebulizer therapy especially given his reported shortness of breath. Qualifiers: COPD type: unspecified COPD Qualified Code(s): J44.9 - Chronic obstructive pulmonary disease, unspecified (4) CVA (cerebral vascular accident) Current Visit: Yes Status: Acute Assessment and plan: With residual speech difficulty but his functional status is adequate. Will reconcile home meds to ensure he is on antiplatelet and statin therapy. Qualifiers: CVA mechanism: unspecified Qualified Code(s): I63.9 - Cerebral infarction, unspecified (5) Tobacco abuse Current Visit: Yes Status: Acute Assessment and plan: 5 minutes were spent counseling and educating the patient on this habit. dental services director and resources were made available. (6) HTN (hypertension) Current Visit: Yes Status: Chronic Assessment and plan: Well controlled at this time. Will resume home meds once confirmed. Qualifiers: Hypertension type: essential hypertension Qualified Code(s): I10 - Essential (primary) hypertension (7) DVT prophylaxis Current Visit: Yes Status: Acute Assessment and plan: SubQ heparin ordered. - Time Spent With Patient Total time spent is greater than 50% in coordination of care (as documented) at patient's floor/unit and/or counseling patient: Greater than 35 minutes
[2018-10-05] MEDS ORDERED: Aspirin 81 MG TAB.CHEW PO ONE (07:37)
[2018-10-05] MEDS: Furosemide 20 MG/2 ML VIAL IVP SCH ×2 (08:53→23:43)
--- NOTE | 2018-10-05 10:45 | Event Note ---
Date of Encounter: 10/05/18 Time of Encounter: 09:00 H&P reviewed. Patient with history of hypertension, history of CVA, tobacco abuse, CHF, was admitted for the concern of CHF + PNA. 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 Verbal report from CTA is that of anasarca with questionable cirrhosis but both LE have 3v runoff despite L EIA chronic occlusion. Will obtain duplex study of L UE in addition. Continue IV diuresis in addition to IV abx for CHF and PNA while waiting for echocardiogram. Minimal troponin elevation of 0.04 which has now normalized. Loaded with ASA and will await for echocardiogram before deciding on further management.
[2018-10-05] MEDS ORDERED: Azithromycin 500 MG in D5% in Water 250 ML IVPB SCH (11:00)
[2018-10-05] MEDS: Nicotine 14 MG PATCH.TD24 TD SCH (15:10)
[2018-10-05] MEDS ORDERED: cefTRIAXone 1,000 MG in Water for inj. (sterile) 20 ML 10 ML IVP SCH (18:00)
[2018-10-05] MEDS: *HR* Heparin 5,000 UNIT/ML VIAL SQ SCH (18:53)
[2018-10-06 05:16] LABS: Basophils % 0.6 %; Eosinophils % 0.6 %; Hematocrit 44.5 % (37.5-50.1); Hemoglobin 14.3 g/dL (12.9-16.9); Immature Granulocytes % 0.6 % (0-4); Lymphocytes # 1.1 K/mcL (0.6-4.6); Lymphocytes % 16.5 %; Mean Corpuscular HGB Conc 32.1 g/dL (31.6-35.5); Mean Corpuscular Hemoglobin 29.2 pg (28.0-33.3); Mean Platelet Volume 11.6 fL (9.4-12.4); Monocytes # 0.7 K/mcL (0.0-1.3); Monocytes % 9.9 %; Neutrophils # 4.9 K/mcL (1.6-8.9); Platelet Count 106 K/mcL (140-400); Red Blood Count 4.89 M/mcL (4.19-5.50); Segmented Neutrophils % 71.8 %
[2018-10-06 05:37] LABS: Alanine Aminotransferase 22 Units/L (7-52); Albumin 3.3 g/dL (3.5-5.7); Albumin/Globulin Ratio 1.3 (1.1-2.2); Alkaline Phosphatase 95 Units/L (34-104); Aspartate Amino Transferase 20 Units/L (13-39); BUN/Creatinine Ratio 29 (6-26); Bilirubin,Total 0.7 mg/dL (0.3-1.0); Blood Urea Nitrogen 29 mg/dL (8-23); Calcium 8.7 mg/dL (8.6-10.3); Carbon Dioxide 32 mEq/L (23-29); Chloride 98 mEq/L (98-107); Globulin 2.5 g/dL (2.4-3.5); Glucose 93 mg/dL (70-105); Osmolality,Calculated 292 (280-300); Potassium 4.2 mEq/L (3.5-5.1); Sodium 138 mEq/L (136-145); Total Protein 5.8 g/dL (6.4-8.9); eGFR For Non-African Americans > 60 (> 60)
[2018-10-06] MEDS: *HR* Heparin 5,000 UNIT/ML VIAL SQ SCH ×2 (06:01→17:33)
[2018-10-06 06:03] LABS: Chol/HDL Ratio 3.3 (0-4.9); Magnesium 2.1 mg/dL (1.6-2.6)
[2018-10-06 06:30] LABS: Estimated Average Glucose 140 mg/dl; Hemoglobin A1C 6.5 %
[2018-10-06] MEDS ORDERED: Perflutren Lipid Microsphere 1.3 ML in 0.9 % Sodium Chloride 8.7 ML IVP ONE (07:47)
[2018-10-06] MEDS: Furosemide 20 MG/2 ML VIAL IVP SCH ×2 (09:24→20:47)
[2018-10-06] MEDS: Nicotine 14 MG PATCH.TD24 TD SCH (09:24)
[2018-10-06] MEDS: Aspirin Enteric Coated 81 MG Tablet PO SCH (09:24)
--- NOTE | 2018-10-06 10:55 | Internal Med Progress Note ---
Hospitalist Progress Note - Encounter Date of Encounter: 10/06/18 Time of Encounter: 08:30 - Subjective Interval History: Patient reports improvement in his breathing as well as left leg heaviness. No fever/chills overnight. Able to move left arm and left lower extremity without difficulty and does not have any significant pain or numbness. - Exam Vitals: Temp Pulse Resp BP Pulse Ox 97.8 F 103 18 125/84 92 10/06/18 07:04 10/06/18 07:04 10/06/18 07:04 10/06/18 07:04 10/06/18 07:04 Exam: Vitals: Reviewed General: Obese, disheveled, unkempt male lying in bed in NAD. Chest: minimal bibasilar crackles Heart: Normal S1 & S2; normal rate and rhythm. No murmur Abdomen: Non-distended, soft and non-tender to palpation. No peritoneal reaction. Extremities: Left arm - livedo reticularis noted, pale, cyanotic, cool left forearm but able to palpate radial pulse. 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 Able to move left hand without difficulty. Bilateral legs edematous and firm with pitting edema which had improved. Left foot remains cool to touch with cyanosis. Difficult to palpa te distal pulses. Neurological: Grossly nonfocal - Assessment and Plan (1) CHF (congestive heart failure) Current Visit: Yes Status: Acute Assessment and Plan: Suspect that the patient's progressive shortness of breath and leg swelling may be attributable to heart failure. CT scan also showed signs of anasarca, which may be cardiac in origin improved after diuresis, continue IV 20mg BID minimal troponin elevation 0.04 -> 0.03, likely demand ischemia echo pending monitor electrolytes (2) PAD (peripheral artery disease) Current Visit: Yes Status: Acute Assessment and Plan: Notable on physical exam. CTA showed likely chronic occlusion of bilateral LE arteries with 3V runoff on the left and 2V runoff on the right Also demonstrated moderately severe aortoiliac atherosclerotic disease with infrarenal aortic ectasia There was also a concern of L UE perfusion for which he had arterial scan done: 50-75% stenosis in the left mid brachial artery will obtain doppler LE to rule out DVT as well start ASA, statin continue to monitor, may require inpatient vascular surgery consultation (3) CVA (cerebral vascular accident) Current Visit: Yes Status: Chronic Assessment and Plan: With residual speech difficulty ASA, statin as above (4) HTN (hypertension) Current Visit: Yes Status: Chronic Assessment and Plan: Well controlled at this time without meds (5) Tobacco abuse Current Visit: Yes Status: Chronic Assessment and Plan: Smoking cessation emphasized, NRT (6) COPD (chronic obstructive pulmonary disease) Current Visit: Yes Status: Chronic Assessment and Plan: does not appear to be in exacerbation duoneb PRN PFT outpatient smoking cessation advised as above (7) Retroperitoneal lymphadenopathy Current Visit: Yes Status: Acute Assessment and Plan: Evaluation limited by the adjacent edematous status changes Follow-up outpatient (8) DVT prophylaxis Current Visit: Yes Status: Acute Assessment and Plan: SubQ heparin - Time Spent with Patient Total time spent is greater than 50% in coordination of care (as documented) at patient's floor/unit and/or counseling patient: 25 - 35 minutes Plan of Care Discussed with: patient (discussed with RN) Internal Medicine: Result - Labs CBC & Chem 7: 10/06/18 04:06 10/06/18 04:06 Labs: Short CBC 10/06/18 Range/Units 04:06 WBC 6.9 (4.3-11.1) K/mcL Hgb 14.3 D (12.9-16.9) g/dL Hct 44.5 (37.5-50.1) % Plt Count 106 L (140-400) K/mcL Neutrophils # 4.9 (1.6-8.9) K/mcL BMP 10/06/18 04:06 Sodium 138 Potassium 4.2 Chloride 98 Carbon Dioxide 32 H BUN 29 H Creatinine 0.99 Glucose 93 Calcium 8.7 Liver Function 10/06/18 Range/Units 04:06 Total Bilirubin 0.7 (0.3-1.0) mg/dL AST 20 (13-39) Units/L ALT 22 (7-52) Units/L Alkaline Phosphatase 95 (34-104) Units/L Albumin 3.3 L (3.5-5.7) g/dL - Impressions Impressions Aorta w/Runoff CTA 10/05/18 03:35 IMPRESSION: 1. Occlusion of the left external iliac artery. The finding is of indeterminate acuity although the quality of the collateral circulation into the left lower extremity suggests longstanding etiology. 50% to 70% distal left SFA stenoses. Runoff evaluation is limited by motion with three-vessel runoff suspected. 2. Serial 50% to 70% right SFA and popliteal stenoses. Two-vessel runoff distally. 3. Moderately severe aortoiliac atherosclerotic disease. No other significant inflow disease identified. Ectasia of the infrarenal aorta at 2.4 cm maximally with no follow-up imaging indicated. 4. There is evidence of third-spacing of fluid, possibly cardiac in origin. Bilateral pleural effusions, diffuse anasarca, ascites and edematous changes in the retroperitoneum and mesentery. 5. Retroperitoneal adenopathy with evaluation limited by the adjacent edematous changes. Consider follow-up evaluation in several months following resolution of the patient's acute condition. D/ : / 10/05/2018 18:11:59 Ge Montano MD / nic Interpreting Provider: Ge Montano MD Consult Discharge Plan - Plan Referrals: Kristen Díaz CNP [Primary Care Provider] - (1) CHF (congestive heart failure) Qualifiers: Heart failure type: unspecified Heart failure chronicity: acute on chronic Qualified Code(s): I50.9 - Heart failure, unspecified (3) CVA (cerebral vascular accident) Qualifiers: CVA mechanism: unspecified Qualified Code(s): I63.9 - Cerebral infarction, unspecified (4) HTN (hypertension) Qualifiers: Hypertension type: essential hypertension Qualified Code(s): I10 - Essential (primary) hypertension (6) COPD (chronic obstructive pulmonary disease) Qualifiers: COPD type: unspecified COPD Qualified Code(s): J44.9 - Chronic obstructive pulmonary disease, unspecified
[2018-10-07 03:27] LABS: Hemoglobin 14.4 g/dL (12.9-16.9)
[2018-10-07 03:29] LABS: Hematocrit 44.9 % (37.5-50.1); Immature Platelets 8.6 % (1.1-6.1); Mean Corpuscular HGB Conc 32.1 g/dL (31.6-35.5); Mean Corpuscular Hemoglobin 28.8 pg (28.0-33.3); Mean Corpuscular Volume 89.8 fL (83.0-100.0); Red Cell Distribution Width 16.6 % (11.5-14.5)
[2018-10-07 03:48] LABS: BUN/Creatinine Ratio 34 (6-26); Blood Urea Nitrogen 28 mg/dL (8-23); Calcium 8.7 mg/dL (8.6-10.3); Carbon Dioxide 33 mEq/L (23-29); Chloride 99 mEq/L (98-107); Glucose 103 mg/dL (70-105); Magnesium 2.1 mg/dL (1.6-2.6); Osmolality,Calculated 288 (280-300); Potassium 3.9 mEq/L (3.5-5.1); Sodium 136 mEq/L (136-145); eGFR For Non-African Americans > 60 (> 60)
[2018-10-07] MEDS: *HR* Heparin 5,000 UNIT/ML VIAL SQ SCH ×2 (06:25→20:37)
[2018-10-07] MEDS: Nicotine 14 MG PATCH.TD24 TD SCH (08:10)
[2018-10-07] MEDS: Aspirin Enteric Coated 81 MG Tablet PO SCH (08:10)
[2018-10-07] MEDS: Furosemide 20 MG/2 ML VIAL IVP SCH ×2 (08:11→20:37)
--- NOTE | 2018-10-07 08:54 | Cardiology Consult Note ---
<Ge Mays - Last Filed: 10/07/18 15:10> Date of Encounter: 10/07/18 Time of Encounter: 08:52 Assessment and Plan (1) CHF (congestive heart failure) Current Visit: Yes Status: Acute Patient with history of cardiomyopathy and Bumex use presents with shortness of breath, bilateral leg swelling, for the past 1 month. BNP level 696 and peak serial troponin level of 0.04 Chest x-ray revealed borderline cardiomegaly with bibasilar airspace disease. Echo revealed LVEF 30-35%, severe global left ventricular systolic dysfunction, moderately dilated left ventricle, indeterminate diastolic function, moderate mitral regurgitation, moderate tricuspid regurgitation, and mild pulmonary hypertension. Previous echo 05/15/17 showed EF 65%, new findings are concerning for ischemic event. EKG revealed 1st-degree AV block, LVH with T-wave inversion in lateral leads NPO after midnight, anticipate left heart catheterization tomorrow. Continue IV diuresis. Qualifiers: Heart failure type: systolic Heart failure chronicity: acute Qualified Code(s): I50.21 - Acute systolic (congestive) heart failure (2) HTN (hypertension) Current Visit: Yes Status: Chronic Blood pressure controlled. Patient recently discontinued AtenololChlorthalidone due to better controlled blood pressure readings at home. Continue monitoring. Qualifiers: Hypertension type: essential hypertension Qualified Code(s): I10 - Essential (primary) hypertension (3) HLD (hyperlipidemia) Current Visit: Yes Status: Acute Continue statin. Qualifiers: Hyperlipidemia type: unspecified Qualified Code(s): E78.5 - Hyperlipidemia, unspecified (4) PAD (peripheral artery disease) Current Visit: Yes Status: Chronic CTA aorta with runoff revealed left external iliac occlusion. Continue aggressive risk factor modification. Outpatient follow-up. 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 Outpatient follow- up. Qualifiers: CVA mechanism: unspecified Qualified Code(s): I63.9 - Cerebral infarction, unspecified (6) Tobacco abuse Current Visit: Yes Status: Chronic Tobacco cessation discussed. Discussion w patient/family: The assessment and plan as outlined above was discussed with the patient and/or family members who expressed understanding and agreement. All questions were answered. Thank you for involving us in the care of your patient. Please call with any questions. History of Present Illness Consult date: 10/06/18 Requesting physician: Nadir Niño Consult reason: New systolic heart failure Chief complaint: Shortness of breath History of present illness: Mr. Crowder is a 68 year old male with a past medical history of hypertension, CVA, peripheral artery disease, obesity, and tobacco dependence presented to the [facility] ED from his PCP's office complaining of shortness of breath, bilateral leg swelling, left leg heaviness, and chest pain gradually progressing for the past 1 month. Patient reports taking Bumex at home without much improvement in symptoms. He reports recently discontinuing his AtenololChlorthalidone due to controlled blood pressure readings at home. In the ED, labs revealed BNP level 696 and elevated troponin level. Chest x-ray revealed borderline cardiomegaly with bibasilar airspace disease. Echo revealed severe global LV systolic dysfunction, acutely worsened from previous echo findings in April 2017. Patient was given IV diuresis and cardiology was consulted for further evaluation. Past Med Surg Social Fam HX - Past Medical History Medical history: CVA, hyperlipidemia Additional medical history: CVA on 05/14/2017 Psychiatric history: no psych history - Past Surgical History Additional surgical history: total right knee replacement - Social History Smoking Status: Current every day smoker Packs per day: 2 Smokeless Tobacco Status: No Alcohol use: none Drug use: none - Family History Mother Living Status: Hx Family Cancer: Yes (Skin) Father Living Status: Medications and Allergies Bumetanide [Bumex] 1 mg PO DAILY 10/04/18 [History] Clopidogrel [Plavix] 75 mg PO DAILY 10/04/18 [History] Diclofenac Sodium 1 appl TP Q6H PRN 10/07/18 [History] Sulfamethoxazole/Trimeth DS [Bactrim DS] 1 tab PO BID 10/07/18 [History] Allergy/AdvReac Type Severity Reaction Status Date / Time No Known Allergies Allergy Verified 10/07/18 11:11 All Systems Review: The remainder of the systems were reviewed and are negative - Constitutional Constitutional: fatigue, malaise, weakness, no chills, no fever(s) - Cardiovascular Cardiovascular: dyspnea at rest, dyspnea on exertion, leg edema, no chest pain at rest, no chest pain with exertion - Respiratory Respiratory: dyspnea, no cough - Gastrointestinal Gastrointestinal: no abdominal pain, no nausea - Genitourinary Genitourinary: no dysuria, no hematuria - Musculoskeletal Musculoskeletal: abnormal gait, myalgias - Integumentary Integumentary: no erythema, no rash - Neurological Neurological: no focal weakness, no numbness, no tingling - Psychiatric Psychiatric: no anxiety, no depression - Hematological/Lymphatic Hematologic/Lymphatic: easy bruising, no easy bleeding Physical Examination Vital Signs, Last 4 Hours Temp Pulse Resp BP Pulse Ox 10/07/18 07:33 97.4 F L 100 16 112/72 96 General: Conversant, No Apparent Distress HEENT: Atraumatic, Normocephaly Neck: Normal carotid pulses, Other (Supple) Cardiac: Reg Rate and Rhythm, Normal S1 and S2 Lungs: Normal Breath Sounds, No Wheeze, Rales, Rhonchi Neuro: Alert and responsive, No focal deficits noted Abdomen: Soft, Non-Tender Skin: Other (Abrasion left mayer, 2+ pitting pedal edema) Musculoskeletal: No Chest Wall Tenderness Extremities: No Clubbing, No Cyanosis, Other (2+ pitting pedal edema) Results 10/07/18 02:56 10/07/18 02:56 Lab Results 10/07/18 10/07/18 02:56 02:56 WBC 6.8 Hgb 14.4 Hct 44.9 Plt Count 92 L Sodium 136 Potassium 3.9 Chloride 99 Carbon Dioxide 33 H BUN 28 H Creatinine 0.83 Glucose 103 Calcium 8.7 Magnesium 2.1 - Imaging and Cardiology Chest Xray: report reviewed Echo: report reviewed - EKG Interpretation EKG results cardiology: personally reviewed, sinus rhythm (First-degree AV block, LVH with T-wave inversion lateral leads) Consult Discharge Plan - Plan Referrals: Kristen Díaz, SALES MARKETING DIRECTOR [Primary Care Provider] - 10/16/18 3:00 pm <Kaleb Nixon - Last Filed: 10/09/18 15:32> Date of Encounter: 10/07/18 Time of Encounter: 15:15 - Attending Attestation I examined this patient and my medical decision-making was reviewed with the Resident Physician. I agree with the documented findings, disposition and treatment plan as described except to the extent set forth below. CC: Shortness of breath, bilateral lower ext edema. HPI: Pt attests to bilat lower extremity edema, starting several weeks ago, not present two months ago. PT reports has become steadily worse, has developed two pillow orthopnea in last two weeks. He also notes increased bilateral lower extremity edema, worse at night, improves when at rest overnight, but does not completely resolve. He is active, denies chest pain, pressure, palpitations or shortness of breath prior to two weeks ago. He has had some improvement in shortness of breath since hospital admission' ROS: reviewed PMH: reviewed PE: agree with findings as documented. IMP: 1. Acute systolic heart failure with new finding of severely impaired LV systolic function, EF 35% down from 65% 05/08,unclear etiology, responding to IV diuresis. 2. Abnormal EKG: NSR, LVH with T wave inversion lateral leads, cannot rule out new ischemia, pt is candidate for LHC/poss, discussed risks and benefits, pt agrees to proceed, will schedule for tomorrow if able to lie flat, renal status stable 3.Hypertension controlled 4. tobacco abuse, pt continues to smoke against medical advice, discussed smoking cessation, pt will consider, declines pharmocologic support. Assessment and Plan Discussion w patient/family: The assessment and plan as outlined above was discussed with the patient and/or family members who expressed understanding and agreement. All questions were answered. Thank you for involving us in the care of your patient. Please call with any questions. History of Present Illness History of present illness: Mr. Crowder is a 68 year old male All Systems Review: The remainder of the systems were reviewed and are negative Results 10/09/18 06:16 10/09/18 06:16 Lab Results 10/07/18 10/07/18 02:56 02:56 WBC 6.8 Hgb 14.4 Hct 44.9 Plt Count 92 L Sodium 136 Potassium 3.9 Chloride 99 Carbon Dioxide 33 H BUN 28 H Creatinine 0.83 Glucose 103 Calcium 8.7 Magnesium 2.1
--- NOTE | 2018-10-07 16:03 | Internal Med Progress Note ---
Hospitalist Progress Note - Encounter Date of Encounter: 10/07/18 Time of Encounter: 14:30 - Subjective Interval History: States that his breathing and left leg swelling continues to improve. Able to lift L LE better. No fever/chills, nausea/vomiting, or worsening cough. - Exam Vitals: Temp Pulse Resp BP Pulse Ox 97.6 F 100 16 93/66 93 10/07/18 14:45 10/07/18 14:45 10/07/18 14:45 10/07/18 14:45 10/07/18 14:45 Exam: Vitals: Reviewed General: Obese, disheveled, unkempt male lying in bed in NAD. Chest: minimal bibasilar crackles Heart: Normal S1 & S2; normal rate and rhythm. No murmur Abdomen: Non-distended, soft and non-tender to palpation. No peritoneal reaction. Extremities: Left arm - livedo reticularis noted, pale, cyanotic, cool left forearm but able to palpate radial pulse. HOOP CUTTER < 3 secs. Able to move left hand without difficulty. Bilateral legs edematous and firm with pitting edema which continues improved. Left foot remains cool to touch with cyanosis. Difficult to palpate distal pulses. Neurological: Grossly nonfocal - Assessment and Plan (1) CHF (congestive heart failure) Current Visit: Yes Status: Acute Assessment and Plan: Suspect that the patient's progressive shortness of breath and leg swelling may be attributable to heart failure. CT scan also showed signs of anasarca, which may be cardiac in origin minimal troponin elevation 0.04 -> 0.03, likely demand ischemia continues to improve with diuresis, continue IV lasix Echocardiogram yesterday showed new systolic dysfunction of 30-35% with severe global left LV systolic dysfunction appreciate cardiology input, for left heart cath tomorrow To be started on beta andre and SOLO inhibitor prior to discharge if BP tolerates monitor electrolytes (2) PAD (peripheral artery disease) Current Visit: Yes Status: Chronic Assessment and Plan: Notable on physical exam CTA showed likely chronic occlusion of bilateral LE arteries with suspected 3V runoff on the left and 2V runoff on the right Also demonstrated moderately severe aortoiliac atherosclerotic disease with infr arenal aortic ectasia There was also a concern of L UE perfusion for which he had arterial scan done: 50-75% stenosis in the left mid brachial artery doppler LE did not show any DVT pt's med reconciled. SInce he is on plavix, will resume that and d/c ASA. Continue statin vascular surgery consult (3) CVA (cerebral vascular accident) Current Visit: No Status: Chronic Assessment and Plan: With residual speech difficulty plavix, statin as above (4) HTN (hypertension) Current Visit: Yes Status: Chronic Assessment and Plan: Well controlled at this time without meds (5) COPD (chronic obstructive pulmonary disease) Current Visit: Yes Status: Chronic Assessment and Plan: does not appear to be in exacerbation duoneb PRN PFT outpatient smoking cessation advised as above (6) HLD (hyperlipidemia) Current Visit: Yes Status: Acute Assessment and Plan: resume statin (7) Tobacco abuse Current Visit: Yes Status: Chronic Assessment and Plan: Smoking cessation emphasized, NRT (8) Retroperitoneal lymphadenopathy Current Visit: Yes Status: Acute Assessment and Plan: Evaluation limited by the adjacent edematous status changes Follow-up outpatient DVT Prophylaxis: SQ hep - Time Spent with Patient Total time spent is greater than 50% in coordination of care (as documented) at patient's floor/unit and/or counseling patient: 25 - 35 minutes Plan of Care Discussed with: patient (Discussed with vascular surgery) Internal Medicine: Result - Labs CBC & Chem 7: 10/07/18 02:56 10/07/18 02:56 Labs: Short CBC 10/07/18 Range/Units 02:56 WBC 6.8 (4.3-11.1) K/mcL Hgb 14.4 (12.9-16.9) g/dL Hct 44.9 (37.5-50.1) % Plt Count 92 L (140-400) K/mcL BMP 10/07/18 02:56 Sodium 136 Potassium 3.9 Chloride 99 Carbon Dioxide 33 H BUN 28 H Creatinine 0.83 Glucose 103 Calcium 8.7 Consult Discharge Plan - Plan Referrals: Kristen Díaz, BEHAVIORAL HEALTH CASE MANAGER [Primary Care Provider] - (1) CHF (congestive heart failure) Qualifiers: Heart failure type: systolic Heart failure chronicity: acute Qualified Code(s): I50.21 - Acute systolic (congestive) heart failure (3) CVA (cerebral vascular accident) Qualifiers: CVA mechanism: unspecified Qualified Code(s): I63.9 - Cerebral infarction, unspecified (4) HTN (hypertension) Qualifiers: Hypertension type: essential hypertension Qualified Code(s): I10 - Essential (primary) hypertension (5) COPD (chronic obstructive pulmonary disease) Qualifiers: COPD type: unspecified COPD Qualified Code(s): J44.9 - Chronic obstructive pulmonary disease, unspecified (6) HLD (hyperlipidemia) Qualifiers: Hyperlipidemia type: unspecified Qualified Code(s): E78.5 - Hyperlipidemia, unspecified
--- NOTE | 2018-10-07 23:34 | Vascular/Endovasc Consult Note ---
Date of Encounter: 10/07/18 Time of Encounter: 16:50 Assessment and Plan (1) Atherosclerosis of [place] arteries of extremities with intermittent claudication, bilateral legs Current Visit: Yes Status: Chronic The pathophysiology and natural history of peripheral vascular disease was discussed with the patient and all questions were answered. The patient bilateral large peripheral vascular disease. He is diminished pulse exam. He denies rest pain, ulceration or gangrene. He has no evidence of limb threatening ischemia. Ankle brachial indices will be ordered. The patient was counseled regarding atherosclerotic risk factor reduction. The patient follow up in clinic after his acute medical conditions resolve further evaluation. - History of Present Illness History of present illness: Mr. Crowder is a 68 year old male Past Med Surg Social Fam HX - Past Medical History Medical history: CVA, hyperlipidemia Additional medical history: CVA on 05/14/2017 Psychiatric history: no psych history - Past Surgical History Additional surgical history: total right knee replacement - Social History Smoking Status: Current every day smoker Packs per day: 2 Smokeless Tobacco Status: No Alcohol use: none Drug use: none - Family History Mother Living Status: Hx Family Cancer: Yes (Skin) Father Living Status: Medications and Allergies Bumetanide [Bumex] 1 mg PO DAILY 10/04/18 [History] Clopidogrel [Plavix] 75 mg PO DAILY 10/04/18 [History] Diclofenac Sodium 1 appl TP Q6H PRN 10/07/18 [History] Sulfamethoxazole/Trimeth DS [Bactrim DS] 1 tab PO BID 10/07/18 [History] Allergy/AdvReac Type Severity Reaction Status Date / Time No Known Allergies Allergy Verified 10/07/18 11:11 All Systems Review: The remainder of the systems were reviewed and are negative Exam Vital Signs, Last 4 Hours Temp Pulse Resp BP Pulse Ox 10/07/18 19:59 97.8 F 109 16 107/70 93 Consult Discharge Plan - Plan Referrals: Kristen Díaz, CHIEF PHYSICAL THERAPIST [Primary Care Provider] -
[2018-10-08] MEDS: *HR* Heparin 5,000 UNIT/ML VIAL SQ SCH ×2 (05:26→17:33)
[2018-10-08] MEDS: Ipratropium/Albuterol Neb 3 ML IH PRN ×2 (05:49→20:20)
[2018-10-08 06:29] LABS: Mean Platelet Volume 11.6 fL (9.4-12.4)
[2018-10-08 06:31] LABS: Basophils % 0.3 %; Eosinophils % 0.6 %; Hematocrit 45.4 % (37.5-50.1); Hemoglobin 14.2 g/dL (12.9-16.9); Immature Granulocytes % 0.6 % (0-4); Immature Platelets 8.4 % (1.1-6.1); Mean Corpuscular HGB Conc 31.3 g/dL (31.6-35.5); Mean Corpuscular Hemoglobin 28.5 pg (28.0-33.3); Mean Corpuscular Volume 91.2 fL (83.0-100.0); Monocytes # 0.6 K/mcL (0.0-1.3); Monocytes % 8.5 %; Neutrophils # 4.8 K/mcL (1.6-8.9); Red Blood Count 4.98 M/mcL (4.19-5.50); Red Cell Distribution Width 16.6 % (11.5-14.5)
[2018-10-08 06:34] LABS: INR 1.2; Prothrombin Time 13.3 Seconds (9.4-12.1)
[2018-10-08 06:44] LABS: Platelet Count 87 K/mcL (140-400)
[2018-10-08 06:46] LABS: BUN/Creatinine Ratio 31 (6-26); Blood Urea Nitrogen 25 mg/dL (8-23); Calcium 8.8 mg/dL (8.6-10.3); Carbon Dioxide 34 mEq/L (23-29); Chloride 99 mEq/L (98-107); Glucose 93 mg/dL (70-105); Osmolality,Calculated 290 (280-300); Potassium 3.9 mEq/L (3.5-5.1); Sodium 138 mEq/L (136-145); eGFR For Non-African Americans > 60 (> 60)
[2018-10-08] MEDS: Furosemide 20 MG/2 ML VIAL IVP SCH ×2 (09:18→20:06)
[2018-10-08] MEDS ORDERED: *HR* Heparin 10,000 UNIT/10 ML VIAL ONE (09:44)
[2018-10-08] MEDS ORDERED: ISOVUE-370 200 ML INFUS..BTL ONE (09:44)
[2018-10-08] MEDS ORDERED: Heparin 1,000 UNITS/500 mL 500 ML ONE (09:44)
[2018-10-08] MEDS ORDERED: Nitroglycerin 1,000 MCG/10 ML VIAL IV ONE (09:44)
[2018-10-08] MEDS ORDERED: 0.9 % Sodium Chloride 1,000 ML ONE ×2 (09:44→09:45)
--- NOTE | 2018-10-08 09:55 | Pre-Sedation Evaluation ---
Pre-sedation evaluation - Pre-sedation checklist Date of procedure: 10/08/18 Procedure: Heart cath Recent Vitals: Last Vital Signs Temp 97.5 F L 10/08/18 06:42 Pulse 93 10/08/18 06:42 Resp 18 10/08/18 06:42 BP 114/77 10/08/18 06:42 Pulse Ox 94 10/08/18 06:42 H&P (including ROS) documented in medical record: Yes Previous reaction to sedatives/anesthetics: No Dietary Status: NPO after Midnight Airway Assessment: Patient can open mouth completely, TMJ function normal, Micrognathia (under-bite, receding chin) absent, Neck with adequate range of motion Dentition: dentures removed Possible difficult airway: No ASA Classification *see protocol: CLASS II-Mild systemic disease Plan of Care: Pt appropriate candidate for procedure/moderate/conscious sedation, Risks/benefits of procedure/sedation discussed w/ patient/family Cardiac Registry (Cardio Only) - Functional Capacity Functional Capacity: < 4 METS - Clincal Frailty Scale Clinical Frailty Scale: Vulnerable
[2018-10-08] MEDS ORDERED: *HR* Midazolam HCl 2 MG/2 ML VIAL ONE (10:13)
[2018-10-08] MEDS ORDERED: *HR* FentaNYL (PF) 100 MCG/2 ML VIAL ONE (10:13)
--- NOTE | 2018-10-08 11:09 | Invasive Diagnostic Lab Proc ---
Name: Emil Crowder Date of Study: 10/08/2018 Date: 1950 Ht: 70.1in Medical Record#: [id number] Age: 68 Wt: 220.46lb Gender: Male BSA: 2.18 Order #: [id number] BMI: 31.56 Physicians Procedure Physician: Yojana Zayas MD, [facility] Referring MD: Referring MD: Staff Name Position Time In Iggy, Irwin RN Geriatric Assistant 10:10 AM Ulises Hernandez RN Geriatric Assistant 10:10 AM Kathy Hayes RN Monitor 10:11 AM Yris Dias RT (R) Scrub 10:11 AM Procedures Performed Procedure L HRT ARTERY/VENTRICLE ANGIO Pre-Procedure Checklist Informed consent is complete signed and on chart. H&P is on chart. ID band is on and ID verified with patient. Patient NPO for procedure The procedure was described for the patient and questions were answered. ECG is on chart. Plan of Care Patient will tolerate the procedure without complications. Adequate level of comfort will be maintained. Hemodynamics will remain stable Patient will recover from procedure without complications. Respiratory function will be maintained. Cardiac rhythm will remain stable. Patient temperature will be maintained. Patient and/or family have verbalized understanding of the procedure. Patient Education Chief Complaint/Reason for Test: Cardiac Cath Developmental Category: Geriatric (65+ years) Developmentally Appropriate for Age: Yes Learning Barriers: None Education Needs: Procedure Education Method: Verbal Information Taught: Cardiac Cath Educational Evaluation: Able to repeat information Intravenous Access Time IV Size Location DC'd Fluid/Drip Rate Units RN 10:21 AM 20g 1 1/" Patent On Arrival Rt Wrist 0.9NaCl ml/hr Allergies NKA No Known Allergies Vital Signs Time BP (mmHg) HR (bpm) O2 Sat. RR (bpm) LOC 10:14 AM / % 5 = Fully awake and oriented or at pre-proc level 10:14 AM / % 4 = Oriented but drowsy 10:29 AM / % 4 = Oriented but drowsy 10:19 AM 128 / 96 109 100 % 15 10:24 AM 104 / 78 101 69 % 28 10:30 AM 118 / 86 108 94 % 28 10:35 AM 129 / 87 107 96 % 25 10:40 AM 122 / 93 115 96 % 26 10:45 AM / % 4 = Oriented but drowsy Procedural Medications Time Medication Dose Units Method Given By 10:15 AM Oxygen 2 L/min nasal cannula Ulises Hernandez RN 10:20 AM Versed 2 mg Intravenous Ulises Hernandez RN 10:20 AM Fentanyl 50 mcg Intravenous Ulises Hernandez RN 10:28 AM Oxygen 6 L/min Oxy Mask Ulises Hernandez RN 10:30 AM Lidocaine 2% 19 ml Subcutaneous Yojana Zayas MD, [facility] ASA Classification: CLASS II- Mild systemic disease (i.e. well-controlled diabetes, hypertension, asthma, cigarette smoking) Manjit Score Preprocedure Postprocedure Activity 2- Moves 4 extremities sustained head lift Activity 2- Moves 4 extremities sustained head lift Circulation 2- SBP +/= 20 points of pre-anesthetic level Circulation 2- SBP +/= 20 points of pre-anesthetic level Consciousness 2- Awake and alert oriented x 3 Consciousness 2- Awake and alert oriented x 3 O2 Saturation 2- Able to maintain O2 satruation of 92% on room air O2 Saturation 1- Needs O2 inhalation to maintain O2 saturation of 90% Respiratory 2- Able to deep breathe and cough well Respiratory 2- Able to deep breathe and cough well Total Score 10 Total Score 9 Contrast Agent: Isovue Diagnostic Contrast: 78 ml Total Contrast: 78 ml Fluoro Dose: 50 mGy Procedure Log Time Note Enter By 09:51 AM CathStat 10:10 AM Pt arrived to [facility] 1 at 10:10 scoates 10:10 AM Irwin Parkinson RN Position: Geriatric Assistant Time in: 10:10 scoates 10:11 AM Ulises Hernandez RN Position: Geriatric Assistant Time in: 10:10 scoates 10:11 AM Kathy Hayes RN Position: Monitor Time in: 10:11 scoates 10:11 AM Patient charges- Angio tray pack, Navilyst 3mm J, Pulse Oximetry and ACIST tubing and transducer scoates 10:11 AM Physician arrived 10:11 scoates 10:11 AM Meet and fernando completed scoates 10:11 AM Sign in performed according to hospital policy. Informed consent was obtained. scoates 10:11 AM Procedure start 10:11 scoates 10:13 AM Yris Dias RT (R) Position: Scrub Time in: 10:11 scoates 10:14 AM Case Delayed no scoates 10:14 AM Hair removed from procedure site in procedure lab using clippers. Right wrist and Right groin prepped with Chloraprep by Yris Dias (R), then patient was draped. Skin intact. scoates 10:14 AM Time: 10:14 Patient comfortable and pain free: Yes scoates 10:14 AM Time: 10:14LOC: 5 = Fully awake and oriented or at pre-proc level scoates 10:14 AM ASA Class CLASS II- Mild systemic disease (i.e. well-controlled diabetes, hypertension, asthma, cigarette smoking) scoates 10:15 AM Time: 10:15 Oxygen on at 2 L/min per nasal cannula by Ulises Hernandez RN scoates 10:18 AM Vitals capture started with the following parameters, Patient=Adult, Interval=5 min, Initial Tyxtijkc=195 mmHg, Deflation Rate=3 mmHg, Cuff placed on Right Arm 10:19 AM PD=693 bpm, PCIM=677/96 mmhg, CqQ0=131.0 %, Resp=15 B/min, Comment=nsr 10:20 AM Time: 10:20 Versed 2 mg Intravenous Given by Ulises Hernandez RN scoates 10:20 AM Time: 10:20 Fentanyl 50 mcg Intravenous Given by Ulises Hernandez RN scoates 10:22 AM Reference ECG taken 10:24 AM HS=980 bpm, NFXS=427/78 mmhg, SpO2=69.0 %, Resp=28 B/min, Comment=sr 10:27 AM Oral airway inserted, size 10 scoates 10:28 AM Time: 10:28 Oxygen on at 6 L/min per Oxy Mask by Ulises Hernandez RN scoates 10:29 AM Time out was performed according to hospital policy. Conscious sedation and anesthesia was achieved (see medication log with in this report above) scoates 10:29 AM Time: :14LOC: 4 = Oriented but drowsy scoates 10:30 AM Time: 10:14 Patient comfortable and pain free: Yes scoates 10:30 AM DJ=773 bpm, QWFE=117/86 mmhg, SpO2=94.0 %, Resp=28 B/min, Comment=sr 10:30 AM Time: 10:30 19 ml Lidocaine 2% to right groin Subcutaneous Given by Yojana Zayas MD, [facility] scoates 10:30 AM Access obtained by percutaneous puncture. 5Fr 10cm Terumo Chaplin sheath placed in right Femoral artery. [id number] scoates 10:31 AM 5Fr FL 4 catheter inserted over the wire DNC scoates 10:31 AM Pressure channel 1 zeroed. 10:32 AM Recorded Pressure: Ao, VT=897, Condition=Condition 1 (Aorta) Ao 90/76/83 10:32 AM LCA angiography performed in multiple views. scoates 10:33 AM Catheter removed scoates 10:34 AM 5Fr FR 4 catheter inserted over the wire DNC scoates 10:34 AM Recorded Pressure: Ao, OM=426, Condition=Condition 1 (Aorta) Ao 91/73/81 10:35 AM WN=158 bpm, NVYN=635/87 mmhg, SpO2=96.0 %, Resp=25 B/min, Comment=sr 10:35 AM RCA angiography performed in multiple views. scoates 10:35 AM Coronary Dominance: right scoates 10:36 AM Catheter removed scoates 10:36 AM 5Fr Pigtail catheter inserted over the wire DNC scoates 10:36 AM Catheter crossed the aortic valve and was selectively placed in the left ventricle. Pressures recorded on pullback for left heart catheterization. scoates 10:37 AM Bolus angiogram of left Ventricle complete: 8 ml/sec for a total of 24 mls scoates 10:37 AM Recorded Pressure: LV, OX=542, Condition=Condition 1 (Left Ventricle) LV 107/5/6 10:38 AM Recorded Pressure: LV, Ao, TO=700, Condition=Condition 1 (Left Ventricle) LV 89/45/63, (Aorta) Ao 100/84/92 10:38 AM physician reviewing films scoates 10:39 AM Bolus angiogram of right Femoral complete: 4 ml/sec for a total of 7 mls scoates 10:39 AM Procedure completed at 10:39 10/08/2018 scoates 10:39 AM What is the NYHA Class? y scoates 10:40 AM Did you address ELTON flow and Dominance? Yes scoates 10:40 AM NT=763 bpm, CYMK=631/93 mmhg, SpO2=96.0 %, Resp=26 B/min, Comment=sr 10:41 AM Sign out completed: Radiation Dose 403 mGy, 50.49 Gy/cm2 Fluoro Time: 1.9 Isovue 370 - 200ml contrast 78 ml given by Yojana Zayas MD, [facility]. Complications: None. The patient was discharged out of the [facility] in stable condition. Sedation minutes 21. Cardiac Rehab Consult needed: No. Confirmed administered medications: Yes scoates 10:41 AM Isovue 370 - 200ml,1 Bottle(s) used. scoates 10:42 AM Arterial sheath pulled, Mynx closure device used and was Successful [id number] S/N. scoates 10:44 AM Vitals capture stopped. 10:45 AM Time: 10:30 Patient comfortable and pain free: Yes scoates 10:45 AM Time: 10:29LOC: 4 = Oriented but drowsy scoates 10:47 AM Estimated Blood Loss: minimal scoates 10:47 AM Post ECG NSR scoates 10:47 AM Post Blood Pressure 122/93 scoates 10:47 AM 10:47 Post Pulses Bilateral DP & PT Doppler scoates 10:47 AM Information taught Cardiac Cath and Mynx scoates 10:48 AM Education needs Procedure, Plan of Care, and Responsibilities of Patient in Care scoates 10:48 AM Learning barriers :None scoates 10:48 AM Education Methods Verbal scoates 10:48 AM Education evaluation Able to repeat information scoates 10:49 AM Site status No bleeding/hematoma - Rt Groin as reported by Yris Dias RT (R) at 10:48 scoates 10:49 AM Opsite applied scoates 10:50 AM Plavix, Effient or Brilinta given No scoates 10:50 AM Delay to floor No scoates 10:50 AM Patient out of room: 10:50 scoates 10:50 AM Family placed in consult room. scoates 10:50 AM Complications: None scoates 10:51 AM Report given to Jessica BOUCHER Pt taken to 3A Room #47. 10:50 scoates 10:55 AM Coronary Dominance: right scoates 10:55 AM Lesion found in Proximal RCA. Pre Stenosis: 50 Pre ELTON Flow: scoates 10:55 AM Lesion found in Mid RCA. Pre Stenosis: 50 Pre ELTON Flow: scoates 10:55 AM Lesion found in Distal RCA. Pre Stenosis: 50 Pre ELTON Flow: scoates 10:55 AM Lesion found in Mid LMCA. Pre Stenosis: 40 Pre ELTON Flow: scoates 10:55 AM Lesion found in Distal LMCA. Pre Stenosis: 40 Pre ELTON Flow: scoates 10:56 AM Lesion found in Proximal LAD. Pre Stenosis: 50 Pre ELTON Flow: scoates 10:56 AM Lesion found in Mid LAD. Pre Stenosis: 30 Pre ELTON Flow: scoates 10:57 AM Lesion found in Distal LAD. Pre Stenosis: 30 Pre ELTON Flow: scoates 10:57 AM Lesion found in Proximal Circumflex. Pre Stenosis: 30 Pre ELTON Flow: scoates 10:57 AM Lesion found in Mid Circumflex. Pre Stenosis: 40 Pre ELTON Flow: scoates 10:57 AM Lesion found in Ramus. Pre Stenosis: 25 Pre ELTON Flow: scoates 11:01 AM Time: 10:45LOC: 4 = Oriented but drowsy scoates 11:01 AM Time: 10:45 Patient comfortable and pain free: Yes scoates Complications Complication None None Hemodynamics Pressures Site Systolic/A Wave Diastolic/V Wave Mean AO 90 76 83 AO 91 73 81 LV 107 5 6 LV 89 45 63 AO 100 84 92 Post Procedure Information Blood Pressure: 122/93 mmHg Rhythm: NSR Post procedural instructions were given Closure Device Time Device Success/Fail 10/08/2018 10:54:00 AM MynxGrip Successful Site Checks Time Location Status Staff Sheath In? Note 10:48 AM Rt Groin No bleeding/hematoma Yris Dias RT (R) Pulses Time Site Pre-Procedure Post-Procedure Note 10/08/2018 10:21:00 AM Bilateral DP & PT Doppler 10/08/2018 10:22:00 AM Bilateral radial 2+ 10:47:00 AM Bilateral DP & PT Doppler Updated by Kathy Nails RN on 10/08/2018 11:03:58 AM electronically signed on 10/08/2018 11:04:28 AM with status of Final
--- NOTE | 2018-10-08 12:32 | Internal Med Progress Note ---
Hospitalist Progress Note - Encounter Date of Encounter: 10/08/18 Time of Encounter: 11:00 - Subjective Interval History: No acute events overnight. No new complaints endorsed by the patient. States that he is moving his left leg much better. No chest pain or palpitation. - Exam Vitals: Temp Pulse Resp BP Pulse Ox 97.5 F L 93 18 114/77 94 10/08/18 06:42 10/08/18 06:42 10/08/18 06:42 10/08/18 06:42 10/08/18 06:42 Exam: Vitals: Reviewed General: Obese, disheveled, unkempt male lying in bed in NAD. Chest: minimal bibasilar crackles Heart: Normal S1 & S2; normal rate and rhythm. No murmur Abdomen: Non-distended, soft and non-tender to palpation. No peritoneal reaction. Extremities: Left arm - livedo reticularis noted, pale, cyanotic, cool left forearm but able to palpate radial pulse. SHEET METAL INSULATOR < 3 secs. Able to move left hand without difficulty. Bilateral LE edema which is improving. Left foot remains cool to touch with cyanosis. Difficult to palpate distal pulses. Neurological: Grossly nonfocal - Assessment and Plan (1) CHF (congestive heart failure) Current Visit: Yes Status: Acute Assessment and Plan: Suspect that the patient's progressive shortness of breath and leg swelling may be attributable to heart failure. CT scan also showed signs of anasarca, which may be cardiac in origin. Also suspicious for cardiac cirrhosis with thrombocytopenia minimal troponin elevation 0.04 -> 0.03, likely demand ischemia Improving with IV lasix, continue Echocardiogram showed new systolic dysfunction of 30-35% with severe global left LV systolic dysfunction appreciate cardiology input, for left heart cath today To be started on beta andre and SOLO inhibitor prior to discharge if BP tolerates monitor electrolytes (2) PAD (peripheral artery disease) Current Visit: Yes Status: Chronic Assessment and Plan: Notable on physical exam CTA showed likely chronic occlusion of bilateral LE arteries with suspected 3V runoff on the left and 2V runoff on the right Also demonstrated moderately severe aortoiliac atherosclerotic disease with infrarenal aortic ectasia There was also a concern of L UE perfusion for which he had arterial scan done: 50-75% stenosis in the left mid brachial artery doppler LE did not show any DVT JAROD: 0.94 R DP, 0.93 R PT, L DP 0.71, L PT 0.79 Continue plavix, statin appreciate vascular surgery input (3) CVA (cerebral vascular accident) Current Visit: No Status: Chronic Assessment and Plan: With residual speech difficulty plavix, statin as above (4) HTN (hypertension) Current Visit: Yes Status: Chronic Assessment and Plan: Well controlled at this time without meds (5) Tobacco abuse Current Visit: Yes Status: Chronic (6) COPD (chronic obstructive pulmonary disease) Current Visit: Yes Status: Chronic Assessment and Plan: does not appear to be in exacerbation duoneb PRN PFT outpatient smoking cessation advised as above (7) HLD (hyperlipidemia) Current Visit: Yes Status: Acute Assessment and Plan: resume statin (8) Retroperitoneal lymphadenopathy Current Visit: Yes Status: Acute Assessment and Plan: Evaluation limited by the adjacent edematous status changes Follow-up outpatient DVT Prophylaxis: SQ hep - Time Spent with Patient Total time spent is greater than 50% in coordination of care (as documented) at patient's floor/unit and/or counseling patient: 25 - 35 minutes Plan of Care Discussed with: patient Internal Medicine: Result - Labs CBC & Chem 7: 10/08/18 06:00 10/08/18 06:00 Labs: Short CBC 10/08/18 Range/Units 06:00 WBC 6.5 (4.3-11.1) K/mcL Hgb 14.2 (12.9-16.9) g/dL Hct 45.4 (37.5-50.1) % Plt Count 87 L (140-400) K/mcL Neutrophils # 4.8 (1.6-8.9) K/mcL BMP 10/08/18 06:00 Sodium 138 Potassium 3.9 Chloride 99 Carbon Dioxide 34 H BUN 25 H Creatinine 0.80 Glucose 93 Calcium 8.8 - ABG Interpretation ABG results: PT/INR, D-dimer PT 13.3 Seconds (9.4-12.1) H 10/08/18 06:00 Consult Discharge Plan - Plan Referrals: Kristen Díaz, SHERIFF'S SERGEANT [Primary Care Provider] - (1) CHF (congestive heart failure) Qualifiers: Heart failure type: systolic Heart failure chronicity: acute Qualified Code(s): I50.21 - Acute systolic (congestive) heart failure (3) CVA (cerebral vascular accident) Qualifiers: CVA mechanism: unspecified Qualified Code(s): I63.9 - Cerebral infarction, unspecified (4) HTN (hypertension) Qualifiers: Hypertension type: essential hypertension Qualified Code(s): I10 - Essential (primary) hypertension (6) COPD (chronic obstructive pulmonary disease) Qualifiers: COPD type: unspecified COPD Qualified Code(s): J44.9 - Chronic obstructive pulmonary disease, unspecified (7) HLD (hyperlipidemia) Qualifiers: Hyperlipidemia type: unspecified Qualified Code(s): E78.5 - Hyperlipidemia, unspecified
[2018-10-08] MEDS: Nicotine 14 MG PATCH.TD24 TD SCH ×2 (15:35→19:08)
--- NOTE | 2018-10-08 21:30 | Electrocardiograph Report ---
[address] [place], [place] [address] Test Date: 2018-10-07 Pat Name: Emil Crowder Department: 115 Room: 3A47 Gender: M Chief Operator Synthesis: : 1950 Requested By: Ge Mays Order Number: [id number] Reading MD: Laura Alvarez Measurements Intervals Perkins Rate: 97 P: 59 ME: 236 QRS: 42 QRSD: 106 T: 160 QT: 344 QTc: 398 Interpretive Statements SINUS RHYTHM WITH FIRST DEGREE AV BLOCK LEFT ATRIAL ENLARGEMENT ST DEVIATION AND MODERATE T-WAVE ABNORMALITY, CONSIDER LATERAL ISCHEMIA Electronically Signed On 10-08-2018 21:29:15 EDT by Laura Alvarez
[2018-10-09] MEDS: *HR* Heparin 5,000 UNIT/ML VIAL SQ SCH ×2 (05:39→17:39)
[2018-10-09 07:24] LABS: Basophils % 0.6 %; Immature Granulocytes % 0.6 % (0-4); Mean Platelet Volume 11.6 fL (9.4-12.4)
[2018-10-09 07:26] LABS: Eosinophils % 0.6 %; Hemoglobin 14.3 g/dL (12.9-16.9); Immature Platelets 9.5 % (1.1-6.1); Lymphocytes # 1.3 K/mcL (0.6-4.6); Mean Corpuscular HGB Conc 31.8 g/dL (31.6-35.5); Mean Corpuscular Hemoglobin 29.3 pg (28.0-33.3); Mean Corpuscular Volume 92.2 fL (83.0-100.0); Monocytes # 0.7 K/mcL (0.0-1.3); Monocytes % 10.9 %; Neutrophils # 4.2 K/mcL (1.6-8.9); Platelet Count 104 K/mcL (140-400); Red Blood Count 4.88 M/mcL (4.19-5.50); Red Cell Distribution Width 17.1 % (11.5-14.5); Segmented Neutrophils % 67.3 %
[2018-10-09 08:08] LABS: BUN/Creatinine Ratio 30 (6-26); Blood Urea Nitrogen 25 mg/dL (8-23); Calcium 8.9 mg/dL (8.6-10.3); Carbon Dioxide 35 mEq/L (23-29); Chloride 99 mEq/L (98-107); Glucose 102 mg/dL (70-105); Magnesium 2.1 mg/dL (1.6-2.6); Osmolality,Calculated 291 (280-300); Potassium 4.5 mEq/L (3.5-5.1); Sodium 138 mEq/L (136-145); eGFR For Non-African Americans > 60 (> 60)
--- NOTE | 2018-10-09 08:21 | Cardiology Progress Note ---
<Ge Mays - Last Filed: 10/09/18 15:18> Date of Encounter: 10/09/18 Time of Encounter: 08:19 Assessment and Plan (1) CHF (congestive heart failure) Current Visit: Yes Status: Acute Patient with history of cardiomyopathy and Bumex use presents with shortness of breath, bilateral leg swelling, for the past 1 month. BNP level 696 and peak serial troponin level of 0.04 Chest x-ray revealed borderline cardiomegaly with bibasilar airspace disease. Echo revealed LVEF 30-35%, severe global left ventricular systolic dysfunction, moderately dilated left ventricle, indeterminate diastolic function, moderate mitral regurgitation, moderate tricuspid regurgitation, and mild pulmonary hypertension. Previous echo 05/15/17 showed EF 65%, new findings are concerning for ischemic event. EKG revealed 1st-degree AV block, LVH with T-wave inversion in lateral leads. Patient's LHC revealed EF 10% and diffuse nonobstructive CAD. Increased Coreg dose to 6.25mg PO BID. Patient's tachycardic this morning may be related to over diuresis. Recommend a life vest. Will need to contact life vest vendor. Qualifiers: Heart failure type: systolic Heart failure chronicity: acute Qualified Code(s): I50.21 - Acute systolic (congestive) heart failure (2) HTN (hypertension) Current Visit: Yes Status: Chronic Blood pressure stable. Patient recently discontinued AtenololChlorthalidone due to better controlled blood pressure readings at home. Increased Coreg dose to 6.25mg PO BID. Continue monitoring. Qualifiers: Hypertension type: essential hypertension Qualified Code(s): I10 - Essential (primary) hypertension (3) HLD (hyperlipidemia) Current Visit: Yes Status: Chronic Continue statin. Qualifiers: Hyperlipidemia type: unspecified Qualified Code(s): E78.5 - Hyperlipidemia, unspecified (4) PAD (peripheral artery disease) Current Visit: Yes Status: Chronic CTA aorta with runoff revealed left external iliac occlusion. Continue a ggressive risk factor modification. Outpatient follow-up. 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 Outpatient follow- up. Qualifiers: CVA mechanism: unspecified Qualified Code(s): I63.9 - Cerebral infarction, unspecified (6) Tobacco abuse Current Visit: Yes Status: Chronic Tobacco cessation discussed. Discussion w patient/family: The assessment and plan as outlined above was discussed with the patient and/or family members who expressed understanding and agreement. All questions were answered. Thank you for involving us in the care of your patient. Please call with any questions. Subjective Principal diagnosis: SOB Interval history: Patient seen and examined resting comfortably in bed s/p [facility] yesterday. Cynthia ventura's EF was 10%, he will need a life vest. He is tachycardic this morning, possibly related to over diuresis. Objective Vital Signs, Last 4 Hours Temp Pulse Resp BP Pulse Ox 10/09/18 06:22 97.6 F 99 15 102/73 95 General: Conversant, No Apparent Distress HEENT: Atraumatic, Normocephaly, Mucus Membranes Moist Neck: No JVD, Normal carotid pulses Cardiac: Normal S1 and S2 (tachycardic) Lungs: Other (minimal bibasilar crackles) Neuro: Alert and responsive, No focal deficits noted Abdomen: Soft, Non-Tender Skin: No rashes noted on visualized skin (no bruising or bleeding at right groin cath access site ) Musculoskeletal: No Chest Wall Tenderness Extremities: Other (1+RLE, 2+ LLE pedal edema, diminished distal pulses BLE) Results 10/09/18 06:16 10/09/18 06:16 Lab Results 10/09/18 10/09/18 06:16 06:16 WBC 6.3 Hgb 14.3 Hct 45.0 Plt Count 104 L Sodium 138 Potassium 4.5 Chloride 99 Carbon Dioxide 35 H BUN 25 H Creatinine 0.84 Glucose 102 Calcium 8.9 Magnesium 2.1 - Imaging and Cardiology Cardiac cath: report reviewed - EKG Interpretation EKG results cardiology: personally reviewed (sinus tachycardia, HR 105, no new changes from previous EKG) Consult Discharge Plan - Plan Referrals: Kristen Díaz, MERRY [Primary Care Provider] - 10/16/18 3:00 pm <Kaleb Nixon - Last Filed: 10/09/18 15:43> Date of Encounter: 10/09/18 Time of Encounter: 15:00 Assessment and Plan Discussion w patient/family: The assessment and plan as outlined above was discussed with the patient and/or family members who expressed understanding and agreement. All questions were answered. Thank you for involving us in the care of your patient. Please call w ith any questions. Objective Vital Signs, Last 4 Hours Temp Pulse Resp BP Pulse Ox 10/09/18 14:09 97.9 F 104 14 106/73 92 Results 10/09/18 06:16 10/09/18 06:16 Lab Results 10/09/18 10/09/18 06:16 06:16 WBC 6.3 Hgb 14.3 Hct 45.0 Plt Count 104 L Sodium 138 Potassium 4.5 Chloride 99 Carbon Dioxide 35 H BUN 25 H Creatinine 0.84 Glucose 102 Calcium 8.9 Magnesium 2.1 Attestation Statement - Attestation Attestation: I examined this patient and my medical decision-making was reviewed with the Resident Physician. I agree with the documented findings, disposition and treatment plan as described except to the extent set forth below. CC: Shortness of breath HPI: pt reports shortness of breath and lower extremity has improved. He reports able to lie flat without shortness of breath ROS: reviewed PMH: reviewed LABS, xrays, LHC films reviewed PE: pt seen and examined, agree with findings as documented. IMP:Plan 1. Acute on chronic systolic heart failure due to non-ischemic cardiomyopathy, better compensated with continued diuresis. Would ideally add SOLO, incresase Coreg, but unable to increase due to hypotension. Will continue to monitor as outpatient, ramp up medications as blood pressure allows. Pt is a candidate for a LifeVest x 3 months until reevaluated for l;zs 2. Hypertension: controlled, now reletively hypotensive, continue low dose beta andre, hold SOLO/ARB. 3. PVD - appreciate vas surgery recs, will continue to follow as outpatient.
[2018-10-09] MEDS: Nicotine 14 MG PATCH.TD24 TD SCH (08:43)
[2018-10-09] MEDS: Furosemide 20 MG/2 ML VIAL IVP SCH ×2 (08:44→20:50)
--- NOTE | 2018-10-09 09:28 | Vascular/Endovas Progress Note ---
Date of Encounter: 10/09/18 Time of Encounter: 08:45 - Assessment and plan (1) Atherosclerosis of [place] arteries of extremities with intermittent claudication, bilateral legs Current Visit: Yes Status: Chronic The patient has peripheral vascular disease. He denies disabling claudication, rest pain, ulceration or gangrene. He does have a diminished pulse exam. His ankle-brachial indices were reviewed. He is evidence of moderate peripheral vascular disease. Given his a symptomatically this time, continued surveillance recommended. The patient was counter atherosclerotic risk factor reduction. He may follow-up in vascular clinic in 1 year with repeat vascular labs. Vital Signs, Last 4 Hours Temp Pulse Resp BP Pulse Ox 10/09/18 06:22 97.6 F 99 15 102/73 95 Results 10/09/18 06:16 10/09/18 06:16 Lab Results, Last 24 hours 10/09/18 10/09/18 06:16 06:16 WBC 6.3 Hgb 14.3 Hct 45.0 Plt Count 104 L Sodium 138 Potassium 4.5 Chloride 99 Carbon Dioxide 35 H BUN 25 H Creatinine 0.84 Glucose 102 Calcium 8.9 Magnesium 2.1 Consult Discharge Plan - Plan Referrals: Kristen Díaz, MERRY [Primary Care Provider] - 10/16/18 3:00 pm
--- NOTE | 2018-10-09 11:18 | Internal Med Progress Note ---
Hospitalist Progress Note - Encounter Date of Encounter: 10/09/18 Time of Encounter: 11:15 - Subjective Interval History: Have seen and evaluated patient and bedside. Patient reports generalized weakness. reports his legs feeling very weak. Denies nausea, vomiting or chest pain. denies shortness of breath. - Exam Vitals: Temp Pulse Resp BP Pulse Ox 97.4 F L 109 15 116/77 96 10/09/18 10:50 10/09/18 10:50 10/09/18 10:50 10/09/18 10:50 10/09/18 10:50 Exam: Vitals: Reviewed General: Alert and oriented x4. In mild distress due to generalized weakness Cardiovascular: RRR, normal S1 & S2, no rubs, murmurs or gallops. Lungs: decreased breath sounds b/l, CTA b/, no wheezes or crackles. Abdomen: Obese, soft, non-tender, no rigidity. Extremities: 2+ in the lower extremities b/l. Neurological: Normal cognition. Rest of the physical exam is non contributory - Assessment and Plan (1) CHF (congestive heart failure) Current Visit: Yes Status: Acute Assessment and Plan: severe HFrEF. estimated E.F of 10% on [facility]. patient reports he has never been on any medications to improve his heart function in the past. Plan patient educated about the importance of being compliant with a fluid restrictive diet on furosemide 20mg/IV BID started on a low dose carvedilol 3.125mg/PO BID ACEs on hold due to low BP Life Vest ordered by the cardiology team cardiology recommendations appreciated continue telemetry monitoring daily weight (2) CVA (cerebral vascular accident) Current Visit: No Status: Chronic Assessment and Plan: on clopidogrel 75mg/PO daily (3) HTN (hypertension) Current Visit: Yes Status: Chronic Assessment and Plan: BP running in the low 100s. Will continue to monitor. patient on furosemide 20mg/PO BID. started on a low dose of a bb (4) HLD (hyperlipidemia) Current Visit: Yes Status: Chronic Assessment and Plan: on atorvastatin 40mg/PO daily (5) Tobacco abuse Current Visit: Yes Status: Chronic (6) PAD (peripheral artery disease) Current Visit: Yes Status: Chronic Assessment and Plan: patient on Plavix. Vascular surgery consulted recommended outpatient follow up. (7) Generalized weakness Current Visit: Yes Status: Acute Assessment and Plan: PT/OT ordered. (8) COPD (chronic obstructive pulmonary disease) Current Visit: Yes Status: Chronic Assessment and Plan: not on acute exacerbation. continue bronchodilators PRN incentive spirometry DVT Prophylaxis: patient is on heparin subQ. - Summary of Assessment and Plan Summary of Assessment and Plan: patient to remain in the hospital due to CHF. Pending life vest placement. - Time Spent with Patient Total time spent is greater than 50% in coordination of care (as documented) at patient's floor/unit and/or counseling patient: 25 - 35 minutes (40) Plan of Care Discussed with: patient (and the nurse) Internal Medicine: Result - Labs CBC & Chem 7: 10/09/18 06:16 10/09/18 06:16 Labs: Short CBC 10/09/18 Range/Units 06:16 WBC 6.3 (4.3-11.1) K/mcL Hgb 14.3 (12.9-16.9) g/dL Hct 45.0 (37.5-50.1) % Plt Count 104 L (140-400) K/mcL Neutrophils # 4.2 (1.6-8.9) K/mcL BMP 10/09/18 06:16 Sodium 138 Potassium 4.5 Chloride 99 Carbon Dioxide 35 H BUN 25 H Creatinine 0.84 Glucose 102 Calcium 8.9 - ABG Interpretation ABG results: PT/INR, D-dimer PT 13.3 Seconds (9.4-12.1) H 10/08/18 06:00 Consult Discharge Plan - Plan Referrals: Kristen Díaz, MERRY [Primary Care Provider] - 10/16/18 3:00 pm (1) CHF (congestive heart failure) Qualifiers: Heart failure type: systolic Heart failure chronicity: acute Qualified Code(s): I50.21 - Acute systolic (congestive) heart failure (2) CVA (cerebral vascular accident) Qualifiers: CVA mechanism: unspecified Qualified Code(s): I63.9 - Cerebral infarction, unspecified (3) HTN (hypertension) Qualifiers: Hypertension type: essential hypertension Qualified Code(s): I10 - Essential (primary) hypertension (4) HLD (hyperlipidemia) Qualifiers: Hyperlipidemia type: unspecified Qualified Code(s): E78.5 - Hyperlipidemia, unspecified (8) COPD (chronic obstructive pulmonary disease) Qualifiers: COPD type: unspecified COPD Qualified Code(s): J44.9 - Chronic obstructive pulmonary disease, unspecified
--- NOTE | 2018-10-09 16:06 | Anesthesia Evaluation PreOp ---
Date of Encounter: 10/09/18 Time of Encounter: 16:04 - Past History Planned Operation: ERCP Alcohol Use: none Drug use: none Medications and Allergies Bumetanide [Bumex] 1 mg PO DAILY 10/04/18 [History] Clopidogrel [Plavix] 75 mg PO DAILY 10/04/18 [History] Diclofenac Sodium 1 appl TP Q6H PRN 10/07/18 [History] Sulfamethoxazole/Trimeth DS [Bactrim DS] 1 tab PO BID 10/07/18 [History] Allergy/AdvReac Type Severity Reaction Status Date / Time No Known Allergies Allergy Verified 10/07/18 11:11 Anesthesia Results - Labs 10/09/18 06:16 10/09/18 06:16 - Imaging EKG: report reviewed (SINUS RHYTHM WITH FIRST DEGREE AV BLOCK LEFT ATRIAL ENLARGEMENT ST DEVIATION AND MODERATE T-WAVE ABNORMALITY, CONSIDER LATERAL ISCHEMIA) Additional studies: Name: Emil Crowder Date of Study: 10/08/2018 LEFT HEART CATH Indications: Cardiomyopathy Impressions: Diffuse nonobstructive coronary artery disease. There is severe global LV Dysfunction EF 10% Recommendations: Optimal medical therapy of patient's disease. Aggressive risk factor modification. LV Ventriculography Ejection Method: LV Gram Ejection Fraction: 10% Wall Motion: [place] Anterobasal Severe Hypokinesis Anterolateral Severe Hypokinesis Apical: Severe Hypokinesis Inferoapical Severe Hypokinesis Inferobasal Severe Hypokinesis Coronary Dominance: right Lesion Findings/Interventions * Left Main Coronary Artery There is a 40% stenosis in the Mid LMCA. The lesion has moderate calcification noted. There is a 40% stenosis in the Distal LMCA. The lesion has moderate calcification noted. * Left Anterior Descending There is a 50% stenosis in the Proximal LAD. The lesion is moderately calcification noted. There is a 30% stenosis in the Mid LAD. There is a 30% stenosis in the Distal LAD. * Circumflex There is a 30% stenosis in the Proximal Circumflex. There is a 40% stenosis in the Mid Circumflex. * Ramus There is a 25% stenosis in the Ramus. * Right Coronary Artery There is a 50% stenosis in the Proximal RCA. The lesion has moderate calcification noted. There is a 50% stenosis in the Mid RCA. The lesion has moderate calcification noted. There is a 50% stenosis in the Distal RCA. The lesion has moderate calcification noted. Anesthesia Exam Vital Signs/O2 Sat, Most Current Temp Pulse Resp BP Pulse Ox 97.9 F 104 14 106/73 92 10/09/18 14:09 10/09/18 14:09 10/09/18 14:09 10/09/18 14:09 10/09/18 14:09
[2018-10-09] MEDS: Ipratropium/Albuterol Neb 3 ML IH PRN (21:32)
[2018-10-10] MEDS: *HR* Heparin 5,000 UNIT/ML VIAL SQ SCH ×2 (05:24→18:05)
[2018-10-10] MEDS: Ipratropium/Albuterol Neb 3 ML IH PRN (05:49)
--- NOTE | 2018-10-10 07:57 | Cardiology Progress Note ---
<Ge Mays - Last Filed: 10/10/18 10:41> Date of Encounter: 10/10/18 Time of Encounter: 07:50 Assessment and Plan (1) CHF (congestive heart failure) Current Visit: Yes Status: Acute Patient with history of cardiomyopathy and Bumex use presents with shortness of breath, bilateral leg swelling, for the past 1 month. BNP level 696 and peak serial troponin level of 0.04 EKG revealed 1st-degree AV block, LVH with T-wave inversion in lateral leads. Chest x-ray revealed borderline cardiomegaly with bibasilar airspace disease. Echo revealed LVEF 30-35%, severe global left ventricular systolic dysfunction, moderately dilated left ventricle, indeterminate diastolic function, moderate mitral regurgitation, moderate tricuspid regurgitation, and mild pulmonary hypertension. Previous echo 05/15/17 showed EF 65%, these new findings were concerning for an ischemic event. Patient's LHC 10/08/18 revealed EF 10% and diffuse nonobstructive CAD. Patient remains tachycardic. He was unable to increase beta andre dose or start an SOLO inhibitor due to low blood pressure. Continue Coreg dose 3.125mg PO BID. Continue IV Lasix. One time dose of Metolazone was ordered today to help with diuresis. Repeat BMP in AM. Recommend a life vest x3 months until re-evaluation for possible ICD placement. Awaiting life vest fitting, paperwork has been faxed the vendor. Qualifiers: Heart failure type: systolic Heart failure chronicity: acute Qualified Code(s): I50.21 - Acute systolic (congestive) heart failure (2) HTN (hypertension) Current Visit: Yes Status: Chronic Blood pressure controlled, now relatively hypotensive. Patient recently discontinued AtenololChlorthalidone due to better controlled blood pressure readings at home. Continue low dose Coreg dose 3.125mg PO BID. Hold SOLO/ARB. Qualifiers: Hypertension type: essential hypertension Qualified Code(s): I10 - Essential (primary) hypertension (3) HLD (hyperlipidemia) Current Visit: Yes Status: Chronic Continue statin. Qualifiers: Hyperlipidemia type: unspecified Qualified Code(s): E78.5 - Hyperlipidemia, unspecified (4) PAD (peripheral artery disease) Current Visit: Yes Status: Chronic CTA aorta with runoff revealed left external iliac occlusion. Continue aggress [place] risk factor modification. Outpatient follow-up. 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 Continue Plavix. Outpatient follow-up. Qualifiers: CVA mechanism: unspecified Qualified Code(s): I63.9 - Cerebral infarction, unspecified (6) Tobacco abuse Current Visit: Yes Status: Chronic Tobacco cessation discussed. Discussion w patient/family: The assessment and plan as outlined above was discussed with the patient and/or family members who expressed understanding and agreement. All questions were answered. Thank you for involving us in the care of your patient. Please call with any questions. Subjective Principal diagnosis: SOB Interval history: Patient seen and examined resting comfortably in bed. Patient denies any new complaints and remains tachycardic this morning. He was unable to increase beta blockers dose or start an SOLO inhibitor due to low blood pressure. One time dose of Metolazone ordered today to help with diuresis. Awaiting life vest fitting, paperwork has been faxed the vendor. Objective Vital Signs, Last 4 Hours Temp Pulse Resp BP Pulse Ox 10/10/18 07:23 97.4 F L 100 17 107/72 94 10/10/18 05:49 18 97 10/10/18 04:04 98.1 F 101 20 101/69 91 General: Conversant, No Apparent Distress HEENT: Atraumatic, Normocephaly, Mucus Membranes Moist Neck: No JVD, Normal carotid pulses Cardiac: Normal S1 and S2 (Tachycardic) Lungs: Normal Breath Sounds, No Wheeze, Rales, Rhonchi Neuro: Alert and responsive, No focal deficits noted Abdomen: Soft, Non-Tender Skin: No rashes noted on visualized skin (no bruising or bleeding at right groin cath access site ) Musculoskeletal: No Chest Wall Tenderness Extremities: No Clubbing, No Cyanosis, Other (1+RLE, 2+ LLE pedal edema, diminished distal pulses BLE) Results 10/09/18 06:16 10/09/18 06:16 Lab Results 10/09/18 06:16 Sodium 138 Potassium 4.5 Chloride 99 Carbon Dioxide 35 H BUN 25 H Creatinine 0.84 Glucose 102 Calcium 8.9 Magnesium 2.1 Consult Discharge Plan - Plan Referrals: Kristen Díaz, MERRY [Primary Care Provider] - 10/16/18 3:00 pm Prescriptions: Atorvastatin [Lipitor] 40 mg PO HS 30 Days #30 tablet Bumetanide [Bumex] 1 mg PO DAILY 30 Days #30 tablet Carvedilol [Coreg] 3.125 mg PO BIDWM 30 Days #60 tablet <Kaleb Nixon - Last Filed: 10/10/18 17:07> Date of Encounter: 10/10/18 Time of Encounter: 15:00 Assessment and Plan Discussion w patient/family: The assessment and plan as outlined above was discussed with the patient and/or family members who expressed understanding and agreement. All questions were answered. Thank you for involving us in the care of your patient. Please call with any questions. Objective Vital Signs, Last 4 Hours Temp Pulse Resp BP Pulse Ox 10/10/18 15:00 98.2 F 106 18 108/74 97 Results 10/09/18 06:16 10/09/18 06:16 Attestation Statement - Attestation Attestation: I examined this patient and my medical decision-making was reviewed with the Viki menchaca Physician. I agree with the documented findings, disposition and treatment plan as described except to the extent set forth below. CC: shortness of breath HPI: Pt reports shortness of breath has resolved, able to sleep flat last pm. He notes legs are better but still swollen. ROS: reviewed PMH: reviewed Labs, Xrays, tele reviewed PE: pt seen and examined, agree with findings as documented IMP/Plan: 1. Acute on chronic systolic heart failure, better compensated with continued diuresis, lower extremities continue edematous, will add [place] 5 mg q d, continue to monitor diuresis. 2. Hypertension: well controlled, bp borderline, unable to up titrate beta blockers due to low bp.
--- NOTE | 2018-10-10 09:22 | Discharge Summary ---
- NOTES TO OUTPATIENT PROVIDER Notes to Outpatient Provider: Follow up cardiology within a week of hospital discharge. Orders not resulted at time of discharge: Pending orders 10/05/18 10:45 Culture,Sputum with Gram Stain [] Stat Legionella Antigen [RM] Stat S. Pneumoniae Antigen [RM] Stat Date of Encounter: 10/10/18 Time of Encounter: 09:19 - Discharge Diagnosis (1) CHF (congestive heart failure) Priority: Primary Status: Acute Qualifiers: Heart failure type: systolic Heart failure chronicity: acute Qualified Code(s): I50.21 - Acute systolic (congestive) heart failure (2) CVA (cerebral vascular accident) Priority: Secondary Status: Chronic Qualifiers: CVA mechanism: unspecified Qualified Code(s): I63.9 - Cerebral infarction, unspecified (3) HTN (hypertension) Priority: Secondary Status: Chronic Qualifiers: Hypertension type: essential hypertension Qualified Code(s): I10 - Essential (primary) hypertension (4) HLD (hyperlipidemia) Priority: Secondary Status: Chronic Qualifiers: Hyperlipidemia type: unspecified Qualified Code(s): E78.5 - Hyperlipidemia, unspecified (5) Tobacco abuse Priority: Secondary Status: Chronic (6) PAD (peripheral artery disease) Priority: Secondary Status: Chronic Hospital course: Mr. Crowder is a 68 year old male history of hypertension, CVA and is an active smoker was seen by his primary care physician yesterday morning with complaints of shortness of breath and wet sounding lungs. His chest x-ray on my review shows more vascular congestion rather than actual focal consolidations. Patient was admitted to the hospital due to CHF exacerbation. patient was managed with IV diuretics. Cardiology consulted, patient underwent a [facility] for ischemic work up, Impressions: Diffuse nonobstructive coronary artery disease. There is severe global LV Dysfunction EF 10%. A lifeVest was recommended. Vascular surgery was consulted due to claudication and recommended to continue antiplatelets and ankle/brachial index was ordered: Left mid brachial artery 50-75% stenosis. Vascular surgery recommended against surgical interventions and recommended to follow up as outpatient. patient is hemodynamically stable to be discharge. Patient refused going to rehab. - Time Spent with Patient Total time spent providing and/or coordinating discharge services: Time spent: Greater than 30 minutes (35) - Discharge Medications Prescriptions: New Atorvastatin [Lipitor] 40 mg PO HS 30 Days #30 tablet Carvedilol [Coreg] 3.125 mg PO BIDWM 30 Days #60 tablet Continue Diclofenac Sodium 1 appl TP Q6H PRN PRN Reason: Pain Bumetanide [Bumex] 1 mg PO DAILY 30 Days #30 tablet Clopidogrel [Plavix] 75 mg PO DAILY Discontinued Sulfamethoxazole/Trimeth DS [Bactrim DS] 1 tab PO BID Home Medications: Clopidogrel [Plavix] 75 mg PO DAILY 10/04/18 [History] Diclofenac Sodium 1 appl TP Q6H PRN 10/07/18 [History] Atorvastatin [Lipitor] 40 mg PO HS 30 Days #30 tablet 10/10/18 [Rx] Bumetanide [Bumex] 1 mg PO DAILY 30 Days #30 tablet 10/10/18 [Rx] Carvedilol [Coreg] 3.125 mg PO BIDWM 30 Days #60 tablet 10/10/18 [Rx] Allergies/Adverse Reactions: Allergy/AdvReac Type Severity Reaction Status Date / Time No Known Allergies Allergy Verified 10/07/18 11:11 Date of admission: 10/08/18 13:25 Primary care physician: Kristen Díaz CNP Consults: 10/06/18 07:52 Consult to Occupational Therapy [CONS] Routine Comment: Evaluate, develop and implement POC Reason for Consult: CHF, failure to thrive Does patient have active BEDREST order?: No Is patient medically & hemodynamically stable?: Yes Consult to Physical Therapy [CONS] Routine Comment: Evaluate, develop and implement POC Reason for Consult: CHF, failure to thrive Does patient have active BEDREST order?: No Is patient medically & hemodynamically stable?: Yes 10/06/18 16:05 Consult to Cardiology [CONS] Routine Comment: Consulting Provider: [facility] [place] Reason for Consult: New systolic heart failure Call Completed: Yes 10/07/18 15:48 Consult to Vascular Surgery [CONS] Routine Consulting Provider: Vascular [facility] [place] Reason for Consult: PAD, no convincing 3 vessel run off on L LE on CTA Call Completed: Yes 10/08/18 09:03 Consult to Nurse Navigator [CONS] Routine Comment: chf - Constitutional Vitals: Temp Pulse Resp BP Pulse Ox 97.4 F L 100 17 107/72 94 10/10/18 07:23 10/10/18 07:23 10/10/18 07:23 10/10/18 07:23 10/10/18 07:23 Exam: Vitals: Reviewed General: Alert and oriented x4. No distress Cardiovascular: RRR, normal S1 & S2, no rubs, murmurs or gallops. Lungs: decreased breath sounds b/l, CTA b/l, no wheezes or crackles. Abdomen: Obese, soft, non-tender, no rigidity. NABS in all 4 quadrants Extremities: 3+ edema in the lower extremities b/l. Neurological: Normal cognition. Rest of the physical exam is non contributory - Patient Status Disposition: Transfer SNF Condition: Fair Functional capacity at discharge: uses cane/walker Overall status at discharge: patient is progressing back to baseline - Discharge Instructions Follow Up With: Kristen Díaz CNP [Primary Care Provider] - 10/16/18 3:00 pm - Diet and Activity Activity: as per physical therapy Diet: diabetic diet, low salt diet
--- NOTE | 2018-10-10 09:32 | Physician Discharge Referral ---
ExtendedCare Referral Info Transfer To: ECF/SNF - Diagnosis (1) CHF (congestive heart failure) Priority: Primary Status: Acute (2) CVA (cerebral vascular accident) Priority: Secondary Status: Chronic (3) HTN (hypertension) Priority: Secondary Status: Chronic (4) HLD (hyperlipidemia) Priority: Secondary Status: Chronic (5) Tobacco abuse Priority: Secondary Status: Chronic (6) PAD (peripheral artery disease) Priority: Secondary Status: Chronic Prognosis: Fair Aware of Diagnosis: Patient Aware of Prognosis: Patient - Transfer Medications Prescriptions: Atorvastatin [Lipitor] 40 mg PO HS 30 Days #30 tablet Bumetanide [Bumex] 1 mg PO DAILY 30 Days #30 tablet Carvedilol [Coreg] 3.125 mg PO BIDWM 30 Days #60 tablet Home Medications: Clopidogrel [Plavix] 75 mg PO DAILY 10/04/18 [History] Diclofenac Sodium 1 appl TP Q6H PRN 10/07/18 [History] Atorvastatin [Lipitor] 40 mg PO HS 30 Days #30 tablet 10/10/18 [Rx] Bumetanide [Bumex] 1 mg PO DAILY 30 Days #30 tablet 10/10/18 [Rx] Carvedilol [Coreg] 3.125 mg PO BIDWM 30 Days #60 tablet 10/10/18 [Rx] Allergies/Adverse Reactions: Allergy/AdvReac Type Severity Reaction Status Date / Time No Known Allergies Allergy Verified 10/07/18 11:11 - Respiratory Orders Oxygen / L per min (2 litters) Smoking Cessation: Smoking cessation has been advised. For more information, call the [place] Tobacco Quit Line at 3-815-HCBB-NOW. - Advance Directives Code Status: Full Code - Mobility Orders Chair, Ambulate - Rehabiliation Orders Rehab Potential: Fair Rehab Orders: Evaluation for Physical Therapy, Evaluation for Occupational Therapy - Diet Orders Regular CERTIFICATION: I certify that the transfer of the above named patient to an Extended Care Facility is necessary for the continuing treatment of the diagnosis listed. The above information is true and accurate reflection of patient's current condition. Confidential - Redisclosure prohibited without a patient's written consent.
[2018-10-10] MEDS ORDERED: metOLazone 5 MG TABLET PO ONE (10:37)
[2018-10-10] MEDS: Nicotine 14 MG PATCH.TD24 TD SCH (10:56)
[2018-10-10] MEDS: Furosemide 20 MG/2 ML VIAL IVP SCH ×2 (10:57→20:24)
--- NOTE | 2018-10-10 12:28 | Physician Discharge Referral ---
Home Health/Hosp Referral Info Transfer to: Home Health - Diagnosis (1) CHF (congestive heart failure) Priority: Primary Status: Acute (2) CVA (cerebral vascular accident) Priority: Secondary Status: Chronic (3) HTN (hypertension) Priority: Secondary Status: Chronic (4) HLD (hyperlipidemia) Priority: Secondary Status: Chronic (5) Tobacco abuse Priority: Secondary Status: Chronic (6) PAD (peripheral artery disease) Priority: Secondary Status: Chronic - Respiratory Orders Oxygen / L per min Smoking Cessation: Smoking cessation has been advised. For more information, call the [place] Tobacco Quit Line at 9-141-JBWP-NOW. - Diet/Nutrition Diet/Nutrition Orders: Regular - Activity Activity Orders: Ambulate - Services Needed Following services are medically necessary services: Nursing, Home Health Aide, Physical Therapy, Occupational Therapy - Transfer Medications Prescriptions: Atorvastatin [Lipitor] 40 mg PO HS 30 Days #30 tablet Bumetanide [Bumex] 1 mg PO DAILY 30 Days #30 tablet Carvedilol [Coreg] 3.125 mg PO BIDWM 30 Days #60 tablet Home Medications: Clopidogrel [Plavix] 75 mg PO DAILY 10/04/18 [History] Diclofenac Sodium 1 appl TP Q6H PRN 10/07/18 [History] Atorvastatin [Lipitor] 40 mg PO HS 30 Days #30 tablet 10/10/18 [Rx] Bumetanide [Bumex] 1 mg PO DAILY 30 Days #30 tablet 10/10/18 [Rx] Carvedilol [Coreg] 3.125 mg PO BIDWM 30 Days #60 tablet 10/10/18 [Rx] Allergies/Adverse Reactions: Allergy/AdvReac Type Severity Reaction Status Date / Time No Known Allergies Allergy Verified 10/07/18 11:11 Certification: Further, I certify that my clinical findings support that this patient is homebound (i.e. absences from home require considerable and taxing effort and are for medical reasons or evangelical services or infrequently or short duration when for other reasons) because: Homebound Reason: Patient requires assistance of a person or device to safely leave home Attestation: My signature below is to certify that this patient is under my care and that I, or nurse practitioner, or a physician's refinery operator assistant working with me, has a [id number] encounter with this patient.
--- NOTE | 2018-10-10 20:32 | Electrocardiograph Report ---
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
[2018-10-11] MEDS: Ipratropium/Albuterol Neb 3 ML IH PRN (04:44)
[2018-10-11] MEDS: *HR* Heparin 5,000 UNIT/ML VIAL SQ SCH ×2 (05:46→17:36)
[2018-10-11 06:55] LABS: BUN/Creatinine Ratio 26 (6-26); Blood Urea Nitrogen 19 mg/dL (8-23); Calcium 8.9 mg/dL (8.6-10.3); Carbon Dioxide 40 mEq/L (23-29); Chloride 95 mEq/L (98-107); Glucose 122 mg/dL (70-105); Osmolality,Calculated 290 (280-300); Potassium 3.1 mEq/L (3.5-5.1); Sodium 138 mEq/L (136-145); eGFR For Non-African Americans > 60 (> 60)
--- NOTE | 2018-10-11 08:06 | Cardiology Progress Note ---
<Ge Mays - Last Filed: 10/11/18 14:38> Date of Encounter: 10/11/18 Time of Encounter: 08:04 Assessment and Plan (1) CHF (congestive heart failure) Current Visit: Yes Status: Acute Patient with history of cardiomyopathy and Bumex use presents with shortness of breath, bilateral leg swelling, for the past 1 month. BNP level 696 and peak serial troponin level of 0.04 EKG revealed 1st-degree AV block, LVH with T-wave inversion in lateral leads. Chest x-ray revealed borderline cardiomegaly with bibasilar airspace disease. Echo revealed LVEF 30-35%, severe global left ventricular systolic dysfunction, moderately dilated left ventricle, indeterminate diastolic function, moderate mitral regurgitation, moderate tricuspid regurgitation, and mild pulmonary hypertension. Previous echo 05/15/17 showed EF 65%, these new findings were concerning for an ischemic event. Patient's LHC 10/08/18 revealed EF 10% and diffuse nonobstructive CAD. Patient remains tachycardic. He was unable to increase beta andre dose or start an SOLO inhibitor due to low blood pressure. Continue Coreg dose 3.125mg PO BID. Titrate dose as needed. Patient was given one time dose of Metolazone yesterday with adequate diuresis. Continue Lasix PO. Monitor BMP. Life vest has been placed. Stressed the importance of compliance with life vest x3 months until re-evaluation for possible ICD placement. Patient understood, agreed to and repeated the plan. Will need an outpatient cardiology follow-up. Qualifiers: Heart failure type: systolic Heart failure chronicity: acute Qualified C ode(s): I50.21 - Acute systolic (congestive) heart failure (2) HTN (hypertension) Current Visit: Yes Status: Chronic Blood pressure controlled, now relatively hypotensive. Patient recently discontinued AtenololChlorthalidone due to better controlled blood pressure readings at home. Continue Coreg dose 3.125mg PO BID. Hold SOLO/ARB due to labile blood pressure. Qualifiers: Hypertension type: essential hypertension Qualified Code(s): I10 - Essential (primary) hypertension (3) HLD (hyperlipidemia) Current Visit: Yes Status: Chronic Continue statin. Qualifiers: Hyperlipidemia type: unspecified Qualified Code(s): E78.5 - Hyperlipidemia, unspecified (4) PAD (peripheral artery disease) Current Visit: Yes Status: Chronic CTA aorta with runoff revealed left external iliac occlusion. Continue aggressive risk factor modification. Outpatient follow-up. 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 Continue Plavix. Outpatient follow-up. Qualifiers: CVA mechanism: unspecified Qualified Code(s): I63.9 - Cerebral infarction, unspecified (6) Tobacco abuse Current Visit: Yes Status: Chronic Tobacco cessation discussed. Discussion w patient/family: The assessment and plan as outlined above was discussed with the patient and/or family members who expressed understanding and agreement. All questions were answered. Thank you for involving us in the care of your patient. Please call with any questions. Subjective Principal diagnosis: SOB Interval history: Patient seen and examined resting comfortably in bed. Patient remains tachycardic this morning. Metolazone was started yesterday to help with diuresis and had 1870cc urine output yesterday. Patient was switched from IV to oral Lasix. Life vest was placed today. Objective Vital Signs, Last 4 Hours Temp Pulse Resp BP Pulse Ox 10/11/18 04:54 97.9 F 93 15 117/83 100 10/11/18 04:46 18 95 General: Conversant, No Apparent Distress HEENT: Atraumatic, Normocephaly Neck: No JVD, Normal carotid pulses Cardiac: Normal S1 and S2 (Tachycardic) Lungs: Normal Breath Sounds, No Wheeze, Rales, Rhonchi Neuro: Alert and responsive, No focal deficits noted Abdomen: Soft, Non-Tender Skin: No rashes noted on visualized skin Musculoskeletal: No Chest Wall Tenderness Extremities: No Clubbing, No Cyanosis, Other (1+RLE, 2+ LLE pedal edema, diminished distal pulses BLE) Results 10/09/18 06:16 10/11/18 06:20 Lab Results 10/11/18 06:20 Sodium 138 Potassium 3.1 L Chloride 95 L Carbon Dioxide 40 H* BUN 19 Creatinine 0.74 Glucose 122 H Calcium 8.9 Consult Discharge Plan - Plan Referrals: Kristen Díaz, MERRY [Primary Care Provider] - 10/16/18 3:00 pm Prescriptions: Atorvastatin [Lipitor] 40 mg PO HS 30 Days #30 tablet Bumetanide [Bumex] 1 mg PO DAILY 30 Days #30 tablet Carvedilol [Coreg] 3.125 mg PO BIDWM 30 Days #60 tablet <Kaleb Nixon - Last Filed: 10/11/18 17:11> Date of Encounter: 10/11/18 Assessment and Plan Discussion w patient/family: The assessment and plan as outlined above was discussed with the patient and/or family members who expressed understanding and agreement. All questions were answered. Thank you for involving us in the care of your patient. Please call with any questions. Objective Vital Signs, Last 4 Hours Temp Pulse Resp BP Pulse Ox 10/11/18 16:30 98.1 F 91 18 115/79 93 Results 10/09/18 06:16 10/11/18 06:20 Lab Results 10/11/18 06:20 Sodium 138 Potassium 3.1 L Chloride 95 L Carbon Dioxide 40 H* BUN 19 Creatinine 0.74 Glucose 122 H Calcium 8.9 Attestation Statement - Attestation Attestation: I examined this patient and my medical decision-making was reviewed with the Resident Physician. I agree with the documented findings, disposition and treatment plan as described except to the extent set forth below. CC: Shortness of breath HPI: Pt reports shortness of breath has improved, lower extremity edema has improved. He has Lifevest on, reviewed use, indications. ROS: reviewed PMH: reviewed Labs, Xray, EKGs reviewed PE: pt seen and examined, agree findings as documented. Lower ext edema has improved. IMP/Plan: 1. Acute on chronic systolic heart failure, excellent diuresis with addition of Zaroxyln, will DC, change to po lasix, 2. Severe non-ischemic cardiomyopathy, EF 10%, on life vest x 90 days, while medical tx optimized for CHF, reeval in 90 days for AICD 3. Mild, non-obstructive CAD 4. Hypertension; well contolled, BP borderline, unable to add SOLO
[2018-10-11] MEDS: Furosemide 20 MG/2 ML VIAL IVP SCH (09:06)
[2018-10-11] MEDS: Nicotine 14 MG PATCH.TD24 TD SCH (09:06)
--- NOTE | 2018-10-11 12:18 | Event Note ---
Date of Encounter: 10/11/18 Time of Encounter: 12:13 I have seen the patient at bedside. reports shortness of breath on presentation has resolved. denies chest pain. lifevest placed. Physical Exam: Vitals: Reviewed General: Alert and oriented x4. No distress Cardiovascular: RRR, normal S1 & S2, no rubs, murmurs or gallops. Lungs: decreased breath sounds b/l, CTA b/l, no wheezes or crackles. Abdomen: Obese, soft, non-tender, no rigidity. NABS in all 4 quadrants Extremities: 3+ edema in the lower extremities b/l. Neurological: Normal cognition. Rest of the physical exam is non contributory Assessment and plan 1. HFrEF 2. HTN 3. HLD 4. PAD 5. VTE prophylaxis 6. Hx of CVA Plan Lifevest delivered, patient educated about the importance of wearing the vest as educated on fluids restriction to 1.5 litters a day. with a total negative balance of 1.3 litters continue furosemide 40mg/PO daily on a bb No ACEs as BP is running in the low 100s continue clopidogrel on heparin subQ Plan Pending placement to SNF.
[2018-10-11 20:25] VITALS: BP 95/70
[2018-10-12] MEDS ORDERED: Furosemide 40 MG TABLET PO SCH (09:00)
== END 2018-10-11 22:22 | DRG 287 ==
LOC: 3ANU → SUATTDRO 02:58
PROVIDERS: ADMIT Internal Medicine; ATTEND Internal Medicine